=== PATIENT | male | born 1955 | race Caucasian/White ===

== ENCOUNTER 2020-08-24 13:42 | Outpatient (REF) | payer OTHER, SELFPAY ==
[2020-08-24 14:10] LABS: COVID-19 Test Negative (Negative)
== END 2020-08-24 13:43 | disposition home or self-care (01) ==
LOC: HO.LAB 13:42
PROVIDERS: Visit Provider Internal Medicine
DX: Z20.828 Contact with and (suspected) exposure to other viral communicable diseases (principal)
CPT/HCPCS: 87635

== ENCOUNTER 2020-08-25 09:45 | Emergency (ER) | payer SELFPAY ==
[2020-08-25 11:50] VITALS: BP 158/92; PULSE 81; RESP 18; TEMP 36.9; O2SAT 99; BMI 66.1
--- NOTE | 2020-08-25 12:05 | CT_ITS ---
EXAMINATION: CT HEAD WITHOUT CONTRAST CLINICAL INFORMATION: Dizziness COMPARISON: None. TECHNIQUE: Contiguous axial imaging was performed from the skull base to vertex without intravenous contrast. This CT examination was performed using dose optimization techniques as appropriate, variously including the following: * Automated exposure control * Adjustment of mA and/or kV according to patient size (this includes techniques or standardized protocols for targeted exams where dose is matched to indication/reason for exam; i.e. extremities or head) Use of iterative reconstruction technique DLP: 713 mGy-cm. FINDINGS: There is no evidence of acute intracranial hemorrhage or territorial infarction. No abnormal mass effect or midline shift is seen. Suarez to white matter differentiation is well preserved. No extra-axial fluid collections are identified. No hydrocephalus. No significant volume loss. There is no abnormal attenuation within the brain parenchyma. The osseous structures and soft tissues are normal. The mastoid air cells and visualized portions of the paranasal sinuses are well aerated. IMPRESSION: No acute intracranial pathology.
[2020-08-25 12:45] LABS: Hematocrit 48.4 % (42-52); Hemoglobin 16.7 g/dl (14.0-18.0); Mean Corpuscular HGB Conc 34.5 g/dl (31.0-36.0); Mean Corpuscular Hemoglobin 29.9 pg (27.0-33.0); Mean Corpuscular Volume 86.7 fL (80-98); Mean Platelet Volume 9.8 fL (9.4-12.4); Platelet Count 170 X10*3/uL (160-400); Red Blood Count 5.58 X10*6/uL (4.60-5.80); Red Cell Distribution Width 12.2 % (11.0-16.0); White Blood Count 5.8 X10*3/uL (4.8-10.8)
[2020-08-25 13:07] VITALS: BP 133/91; PULSE 80; RESP 18; TEMP 36.9; O2SAT 98
[2020-08-25 13:18] LABS: Anion Gap 14 (12-20); Blood Urea Nitrogen 12 mg/dL (9-16); Calcium 9.3 mg/dL (8.4-10.2); Carbon Dioxide 25 mmol/L (22-29); Chloride 105 mmol/L (96-108); Creatinine Clr Calc Pharmacy 120.8; Estimated Glomerular Filt Rate > 60; Glucose Random 99 mg/dL (60-115); Potassium 3.7 mmol/l (3.3-5.1); Sodium 140 mmol/L (135-145)
--- NOTE | 2020-08-25 14:49 | ED.GENADULT ---
HPI - General Adult General Chief complaint: General Medical Stated complaint: HEADACHE, DIZZINESS Time Seen by Provider: 08/25/20 12:01 Source: patient Mode of arrival: ambulatory History of Present Illness HPI narrative: 65 years old male presented with 2 weeks of dizziness and headache, with episodes of nose bleed also. Today patient has no headache or dizziness but patient is concerned because his father from a stroke at his age. Onset (ago): week(s) (2) Severity: moderate Related Data Allergies Allergy/AdvReac Type Severity Reaction Status Date / Time No Known Allergies Allergy Verified 08/25/20 12:03 Review of Systems Review of Systems: Yes all other systems are reviewed and are negative Constitutional: Constitutional: Reports headache(s) Eyes: Eyes: Reports no additional eye complaints ENT: Reports system reviewed and no additional complaints, except as documented, Reports dizziness and Reports headache(s) Cardiovascular: Cardiovascular: Reports no additional cardiovascular complaints Respiratory: Respiratory: Reports no additional respiratory complaints Gastrointestinal: Gastrointestinal: Reports no additional gastrointestinal complaints Musculoskeletal: Musculoskeletal: Reports no additional musculoskeletal complaints Neurologic: Reports Abnormal speech present, Reports dizziness and Reports headache(s) Psychiatric: Psychiatric: Reports no additional psychiatric complaints [facility] Past Medical History Medical History No known health problems Social History Social History Smoked in Last 30 Days: No Use of substances other than those prescribed or required for medical reasons: No Advance Directives: No Advance Directives Information Provided: No Physical Exam Vital Signs: Vital Signs: Vital Signs Temp Pulse Resp BP Pulse Ox 08/25/20 13:07 98.5 F 80 18 133/91 H 98 08/25/20 11:50 98.4 F 81 18 158/92 H 99 Body Mass Index 66.1 Const: General: cooperative and healthy appearing Orientation/consciousness: oriented to person HENMT: Head: Yes normal to inspection Ears: hearing grossly normal bilaterally General nose exam: Normal external nose present Face and sinus: Yes normal facial exam Eyes: General: appearance normal, both eyes and all related structures Neck: Neck: Yes normal visual inspection Chest: Chest palpation & inspection: normal inspection of the chest Resp: Effort & Inspection: normal respiratory effort GI: Inspection: Yes normal to inspection : General: Yes no CVA tenderness Back/Spine/Pelvis: Back: no CVA tenderness Neuro: General: oriented to person Cranial nerves: Yes CN's II-XII intact bilaterally Cognition (Neuro): normal cognition Speech: Abnormal speech present Gait exam (Neuro): Normal gait present Motor exam (neuro): 5/5 motor strength present throughout and Pronator motor function not present Sensory Exam: Normal double simultaneous stimulation for sensation Coordination: other (NIH score is 0) Extrem: General: Yes normal to inspection and Yes full ROM Course Course Course Narrative: 2 months of intermittent headache and dizziness, fluctuating blood pressure reading in the emergency department with no known history of hypertension. Consider CT head/labs /complete neuro exam. Reevaluation(s) Reevaluation #1: Patient remained asymptomatic no other new symptoms. Time: 15:21 Medical Decision Making MDM Narrative Medical decision making narrative: Assessment and plan. 65 years old male came in with intermittent headache for the past 2 months. Patient had a negative neuro exam, negative CT scan Of the head, and unremarkable labs. Patient was instructed to follow-up with PCP for further evaluation of blood pressure, reassurance. Lab Data Result diagrams: 08/25/20 01:37 08/25/20 12:33 Labs: Lab Results 08/25/20 08/25/20 08/25/20 Range/Units 01:37 12:33 12:33 WBC 5.8 (4.8-10.8) X10*3/uL RBC 5.58 (4.60-5.80) X10*6/uL Hgb 16.7 (14.0-18.0) g/dl Hct 48.4 (42-52) % MCV 86.7 (80-98) fL MCH 29.9 (27.0-33.0) pg MCHC 34.5 (31.0-36.0) g/dl RDW 12.2 (11.0-16.0) % Plt Count 170 (160-400) X10*3/uL MPV 9.8 (9.4-12.4) fL Absolute Nucleated RBC 0.000 (0.0-0.012) X10*3/uL Nucleated RBC % (auto) 0.0 (0.0-0.2) /100WBC Sodium 140 (135-145) mmol/L Potassium 3.7 (3.3-5.1) mmol/l Chloride 105 (96-108) mmol/L Carbon Dioxide 25 (22-29) mmol/L Anion Gap 14 (12-20) BUN 12 (9-16) mg/dL Creatinine 1.08 (0.5-1.4) mg/dL Estim Creat Clear Calc 120.8 Estimated GFR > 60 Random Glucose 99 (60-115) mg/dL Calcium 9.3 (8.4-10.2) mg/dL Coronavirus (PCR) NEGATIVE (Negative) Discharge Plan Discharge Clinical Impression: Headache, Dizziness, Hypertension Patient Disposition: Home, Self-Care Instructions: Hypertension (ED), Dizziness (ED)
[2020-08-25 15:14] LABS: SARS COV2 PCR INHOUSE NEGATIVE (Negative)
== END 2020-08-25 15:40 | disposition home or self-care (01) ==
PROVIDERS: Emergency Provider Emergency Medicine
DX: R51.9 Headache, unspecified (principal); Z20.828 Contact with and (suspected) exposure to other viral communicable diseases; R42 Dizziness and giddiness; I10 Essential (primary) hypertension
CPT/HCPCS: 36415; 70450; 80048; 85027; 87635; 99284

== ENCOUNTER 2020-11-08 10:17 | Outpatient (REF) | payer OTHER, SELFPAY ==
--- NOTE | 2020-11-08 10:24 | XR_ITS ---
EXAMINATION: XR CHEST CLINICAL INFORMATION: : Positive on 10/13/2020. 2 week follow-up. COMPARISON: No previous chest exam available. TECHNIQUE: 2 views of the chest were obtained. FINDINGS: The lungs are well-inflated without any acute pneumonic process. There is a small nodular density in the right lower lobe overlying sixth anterior rib likely artifact. The heart size and pulmonary vascularity is normal. No gross bony abnormality seen. XR/XR chest 2V IMPRESSION: Unremarkable chest exam.
== END 2020-11-08 10:18 | disposition home or self-care (01) ==
LOC: HO.XRAY 10:17
PROVIDERS: PCP Nurse Practitioner Family; Visit Provider Nurse Practitioner Family
DX: U07.1 COVID-19 (principal); R91.8 Other nonspecific abnormal finding of lung field
CPT/HCPCS: 71046

== ENCOUNTER 2021-05-17 11:31 | Outpatient (REF) | payer MEDICARE, SELFPAY ==
[2021-05-17 13:14] LABS: Hematocrit 47.4 % (42-52); Mean Corpuscular HGB Conc 33.8 g/dl (31.0-36.0); Mean Corpuscular Hemoglobin 29.4 pg (27.0-33.0); Platelet Count 170 X10*3/uL (160-400); Red Blood Count 5.45 X10*6/uL (4.60-5.80); Red Cell Distribution Width 12.9 % (11.0-16.0); White Blood Count 5.5 X10*3/uL (4.8-10.8)
[2021-05-17 13:19] LABS: Prothrombin Time 11.8 SEC (9.9-13.0)
== END 2021-05-17 11:32 | disposition home or self-care (01) ==
LOC: HO.10HDL 11:31
PROVIDERS: Visit Provider Internal Medicine
DX: K21.9 Gastro-esophageal reflux disease without esophagitis (principal)
CPT/HCPCS: 36415; 85027; 85610

== ENCOUNTER 2021-05-31 09:34 | Outpatient (REF) | payer MEDICARE, SELFPAY ==
--- NOTE | ~2021-05-31 | XR_ITS ---
EXAMINATION: XR CHEST CLINICAL INFORMATION: Pulmonary nodule COMPARISON: None TECHNIQUE: Two views of the chest were obtained. FINDINGS: The cardiac and mediastinal contours are normal. There are bilateral symmetric 1 cm nodules at the lung bases. These may represent nipple shadows. The lungs are otherwise clear. There is no pleural effusion or pneumothorax. There are mild degenerative changes of the spine. XR/XR chest 2V IMPRESSION: 1 cm symmetric bibasilar pulmonary nodules probably representing nipple shadows. This could be confirmed with nipple markers. Otherwise unremarkable examination.
== END 2021-05-31 09:35 | disposition home or self-care (01) ==
LOC: HO.XRAY 09:34
PROVIDERS: PCP Nurse Practitioner Family; Visit Provider Nurse Practitioner Family
DX: R91.1 Solitary pulmonary nodule (principal)
CPT/HCPCS: 71046

== ENCOUNTER 2021-06-08 12:27 | Emergency (ER) | payer MEDICARE, SELFPAY ==
--- NOTE | ~2021-06-08 | XR_ITS ---
EXAMINATION: XR CHEST CLINICAL INFORMATION: Left-sided chest pain COMPARISON: May 31, 2021 and November 08, 2020 TECHNIQUE: 2 views of the chest were obtained. FINDINGS: No significant abnormality is noted involving the heart, lungs, mediastinum, bony thorax or soft tissues. Nipple shadows again evident. XR/XR chest 2V IMPRESSION: No acute disease.
[2021-06-08 12:54] VITALS: BP 158/92; PULSE 95; RESP 18; TEMP 36.9; O2SAT 99; BMI 29.5
--- NOTE | 2021-06-08 16:12 | ED.GENADULT ---
HPI - General Adult General Chief complaint: General Medical Stated complaint: Headache nausea dizzy Time Seen by Provider: 06/08/21 15:45 Source: patient Limitations: no limitations History of Present Illness HPI narrative: 66-year-old male who presents emergency department for evaluation of left-sided chest pain, abdominal pain, nausea, vomiting and headache. The patient is being treated for chronic babesiosis by Dr. Ivan Noriega (?sp). The patient states that he may have had a rash in July of 2020. He states he then had a COVID-19 infection in October of 2020. 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 He states that his treatment is been a 1 week course Zithromax and Mepron with 1 week off his medication since February of 2021. He states that he has some recent blood work 1 month prior and Bactrim was added to his regimen. Patient also takes multiple other supplement for chronic babesiosis. He states he has not been feeling well for 4 days. He states he has had constant nausea 4 days with 1 episode of emesis last night. He states these had intermittent headaches which are located in the back of his head and occasionally in the temporal areas of his head. He states that he has been having these headaches since August 2020 and had a negative CT scan at that time. States he did have a low-grade fever yesterday of 100? F orally. He has also noted occasional left lateral chest wall tenderness which lasts seconds to minutes and is worse if he presses on his left chest. He denied chills, myalgias, arthralgias, rash, cough, frequency or urgency or dysuria. He states that he did have 1 episode of diarrhea yesterday and now he has soft stool. He has not noticed any blood in the stool or dark tarry stools. Patient did have a COVID-19 infection October 2020 and he received the Pfizer COVID 19 2 doses vaccination. Related Data Allergies Allergy/AdvReac Type Severity Reaction Status Date / Time No Known Allergies Allergy Verified 08/25/20 12:03 Review of Systems Review of Systems: Yes all other systems are reviewed and are negative [facility] Past Medical History [facility] Narrative: Past medical history: Chronic babesiosis. Surgical history: None. Social history: He denies tobacco, alcohol and drug use. Medical History No known health problems Social History Social History Alcohol intake: never Smoked in Last 30 Days: No Use of substances other than those prescribed or required for medical reasons: No Advance Directives: No Advance Directives Information Provided: No Physical Exam Vital Signs: Vital Signs: Last Vital Signs Temp 98.4 F 06/08/21 12:54 Pulse 95 06/08/21 12:54 Resp 18 06/08/21 16:31 BP 150/83 H 06/08/21 16:31 Pulse Ox 99 06/08/21 16:31 Body Mass Index 29.5 Const: General: cooperative and healthy appearing Orientation/consciousness: oriented to person and oriented to place Limitations: no limitations HENMT: Head: Yes normal to inspection, Yes normocephalic and Yes atraumatic Ears: external ears normal General nose exam: Normal external nose present Face and sinus: Yes normal facial exam Mouth: Normal oral and palatal mucosa present Throat: Yes posterior oropharynx normal Eyes: Periorbital: periorbital findings normal Eyelids: Yes eyelids normal Conjunctivae: conjunctivae normal Sclerae: sclerae normal Corneas: corneas normal Pupils: Equal, round and reactive pupils present Direct Ophthalmoscopy: normal light reflex Neck: Neck: Yes full ROM, Yes no lymphadenopathy, Yes no meningeal signs, Yes trachea midline and Yes supple Chest: Chest palpation & inspection: normal inspection of the chest and normal palpation of entire chest wall Resp: Effort & Inspection: normal respiratory effort and able to speak in complete sentences Auscultation: clear to auscultation bilaterally Cardio: Rate: regular rate Rhythm: regular rhythm Heart sounds: S1 normal heart sound present, S2 normal heart sound present and no murmurs GI: Inspection: Yes normal to inspection Palpation (GI): Soft to palpation, nontender, no guarding, not rigid and No hepatosplenomegaly present : General: Yes no CVA tenderness Back/Spine/Pelvis: Back: no CVA tenderness Cervical Spine: normal cervical lordosis Thoracic/Lumbar Spine: thoracic and lumbar spine normal to inspection Skin: Lesions: no lesions Rashes: no rashes Wounds: no wounds Neuro: General: oriented to person, oriented to place and no meningeal signs Cranial nerves: Yes CN's II-XII intact bilaterally and Yes Equal, round and reactive pupils present Cognition (Neuro): normal cognition Motor exam (neuro): 5/5 motor strength present throughout Extrem: General: Yes normal to inspection and Yes full ROM Psych: Appearance: well kempt Mental Status: mental status grossly normal Speech and movement: Normal speech and movement present Affect: normal affect Attitude: cooperative Thought process: Normal thought process present Thought content: Normal thought content present Course Course Course Narrative: 66-year-old male who presents emergency department for evaluation of 4 days of not feeling well with symptoms including persistent nausea x4 days, emesis x1 last night, 1 episode of diarrhea now with soft stools, headaches which he has had in the past and a temperature of 100? F headaches and intermittent left-sided chest pain. The patient is 3 antibiotics, azithromycin, Bactrim and Mepron(Atovaquone) for chronic babesiosis as well as multiple supplemental medications. Revealed an elevated blood pressure of 158/92 otherwise was unremarkable. Physical examination was normal. I did order a COVID-19, CBC, CMP, CRP, ESR, troponin, chest x-ray, EKG on this patient . His nausea will be treated with Zofran 4 mg IV. Was also ordered to get normal saline x1 L. 1816: The patient's laboratory evaluation revealed a normal CBC, ESR, CRP. The patient's CMP did reveal elevated AST, ALT and bilirubin 56, 215 and 1.6. It is unclear to me what is causing this elevation, the patient will need to pursue this with his linking machine operator, Dr. Aceves. At this time I do not think patient has acute Lyme or adhesiolysis is the cause of his symptoms. He may have an acute viral syndrome or he may be having side effects from his medications as the cause of his presentation. Patient was prescribed Zofran ODT 4 mg every 6-8 hours as needed for nausea and vomiting. The patient was given verbal and printed instructions prior to discharge. The patient was advised to follow-up with his PCP in 2 days and to return to the emergency department if his symptoms get worse or if he develop any new symptoms that are concerning to him. Medical Decision Making Lab Data Result diagrams: 06/08/21 16:28 06/08/21 16:27 Labs: Lab Results 06/08/21 06/08/21 06/08/21 Range/Units 16:25 16:27 16:27 WBC (4.8-10.8) X10*3/uL RBC (4.60-5.80) X10*6/uL Hgb (14.0-18.0) g/dl Hct (42-52) % MCV (80-98) fL MCH (27.0-33.0) pg MCHC (31.0-36.0) g/dl RDW (11.0-16.0) % Plt Count (160-400) X10*3/uL MPV (9.4-12.4) fL Immature Gran % (Auto) (0.0-0.4) % Neut % (Auto) (45-73) % Lymph % (Auto) (20-40) % [place] % (Auto) (2-11) % Eos % (Auto) (0-4) % Baso % (Auto) (0-2) % Lymph # (Auto) (1.2-4.9) X10*3/uL [place] # (Auto) (0.1-1.2) X10*3/uL Eos # (Auto) (0.0-0.4) X10*3/uL Baso # (Auto) (0.0-0.2) X10*3/uL Abs Immat Gran (auto) (0.00-0.03) X10*3/uL Absolute Neuts (auto) (2.0-8.3) X10*3/uL Absolute Nucleated RBC (0.0-0.012) X10*3/uL Nucleated RBC % (auto) (0.0-0.2) /100WBC ESR (0-15) MM/HR Sodium 141 (135-145) mmol/L Potassium 3.5 (3.3-5.1) mmol/L Chloride 103 (96-108) mmol/L Carbon Dioxide 24 (22-29) mmol/L Anion Gap 18 (12-20) BUN 7 L (9-16) mg/dL Creatinine 1.18 (0.5-1.4) mg/dL Estim Creat Clear Calc 69.4 Estimated GFR > 60 Random Glucose 112 (60-115) mg/dL Calcium 10.0 D (8.4-10.2) mg/dL Total Bilirubin 1.6 H (0.0-1.0) mg/dL AST 56 H (5-37) U/L ALT 215 H (0-40) U/L Alkaline Phosphatase 107 (39-117) U/L Total Creatine Kinase 104 (38-174) U/L Troponin I High Sens < 3.5 (<3.5-35.0) ng/L C-Reactive Protein 0.05 (< or = 0.50) mg/dL Total Protein 7.9 (6.5-8.0) g/dL Albumin 5.2 H (3.5-5.0) g/dL Lipase 25 (8-78) U/L COVID-19 (GERRI) Negative (Negative) COVID-19 Clin Com See Note 06/08/21 06/08/21 Range/Units 16:28 16:28 WBC 6.2 (4.8-10.8) X10*3/uL RBC 5.79 (4.60-5.80) X10*6/uL Hgb 17.1 (14.0-18.0) g/dl Hct 50.1 (42-52) % MCV 86.5 (80-98) fL MCH 29.5 (27.0-33.0) pg MCHC 34.1 (31.0-36.0) g/dl RDW 13.1 (11.0-16.0) % Plt Count 173 (160-400) X10*3/uL MPV 8.9 L (9.4-12.4) fL Immature Gran % (Auto) 0.2 (0.0-0.4) % Neut % (Auto) 72.4 (45-73) % Lymph % (Auto) 20.2 (20-40) % [place] % (Auto) 6.4 (2-11) % Eos % (Auto) 0.2 (0-4) % Baso % (Auto) 0.6 (0-2) % Lymph # (Auto) 1.3 (1.2-4.9) X10*3/uL [place] # (Auto) 0.4 (0.1-1.2) X10*3/uL Eos # (Auto) 0.0 (0.0-0.4) X10*3/uL Baso # (Auto) 0.0 (0.0-0.2) X10*3/uL Abs Immat Gran (auto) 0.01 (0.00-0.03) X10*3/uL Absolute Neuts (auto) 4.5 (2.0-8.3) X10*3/uL Absolute Nucleated RBC 0.000 (0.0-0.012) X10*3/uL Nucleated RBC % (auto) 0.0 (0.0-0.2) /100WBC ESR 1 (0-15) MM/HR Sodium (135-145) mmol/L Potassium (3.3-5.1) mmol/L Chloride (96-108) mmol/L Carbon Dioxide (22-29) mmol/L Anion Gap (12-20) BUN (9-16) mg/dL Creatinine (0.5-1.4) mg/dL Estim Creat Clear Calc Estimated GFR Random Glucose (60-115) mg/dL Calcium (8.4-10.2) mg/dL Total Bilirubin (0.0-1.0) mg/dL AST (5-37) U/L ALT (0-40) U/L Alkaline Phosphatase (39-117) U/L Total Creatine Kinase (38-174) U/L Troponin I High Sens (<3.5-35.0) ng/L C-Reactive Protein (< or = 0.50) mg/dL Total Protein (6.5-8.0) g/dL Albumin (3.5-5.0) g/dL Lipase (8-78) U/L COVID-19 (GERRI) (Negative) COVID-19 Clin Com Discharge Plan Discharge Clinical Impression: Chest pain Qualifiers: Chest pain type: unspecified Qualified Code(s): R07.9 - Chest pain, unspecified Nausea & vomiting Qualifiers: Vomiting type: unspecified Vomiting Intractability: non-intractable Qualified Code(s): R11.2 - Nausea with vomiting, unspecified Patient Disposition: Home, Self-Care Instructions: Acute Nausea and Vomiting (ED) Additional Instructions: Your blood work was normal except for elevation in your liver test. You had an elevated AST of 56, and elevated ALT 215 in an elevated total bilirubin of 1.6. I do not know the cause of these elevations but I do not think that they are related to your symptoms. You should discuss these elevations with your linking machine operator, Dr. Aceves, you should have these tests repeated in 2 weeks and that they are still elevated then you may need further testing. Take Zofran (ondansetron) 4 mg oral dissolvable tablets, dissolve 1 tablet in your mouth every 6-8 hours as needed for nausea and vomiting. Follow-up with your doctor in 2 days. Please return to the emergency department if your symptoms get worse or if you develop any symptoms that are concerning to you.
[2021-06-08 16:31] VITALS: BP 150/83; RESP 18; O2SAT 99
[2021-06-08 16:33] LABS: MANUAL DIFF FLAG NO
[2021-06-08 16:35] LABS: Basophils Percent Auto 0.6 % (0-2); Eosinophils Percent Auto 0.2 % (0-4); Hematocrit 50.1 % (42-52); Hemoglobin 17.1 g/dl (14.0-18.0); Imm Gran Abs Auto 0.01 X10*3/uL (0.00-0.03); Imm Gran Pct Auto 0.2 % (0.0-0.4); Lymphocytes Absolute Auto 1.3 X10*3/uL (1.2-4.9); Lymphocytes Percent Auto 20.2 % (20-40); Mean Corpuscular HGB Conc 34.1 g/dl (31.0-36.0); Mean Corpuscular Hemoglobin 29.5 pg (27.0-33.0); Mean Corpuscular Volume 86.5 fL (80-98); Mean Platelet Volume 8.9 fL (9.4-12.4); Monocytes Absolute Auto 0.4 X10*3/uL (0.1-1.2); Monocytes Percent Auto 6.4 % (2-11); Neutrophils Absolute Auto 4.5 X10*3/uL (2.0-8.3); Neutrophils Percent Auto 72.4 % (45-73); Platelet Count 173 X10*3/uL (160-400); Red Blood Count 5.79 X10*6/uL (4.60-5.80); Red Cell Distribution Width 13.1 % (11.0-16.0); White Blood Count 6.2 X10*3/uL (4.8-10.8)
[2021-06-08 16:47] LABS: COVID-19 Test Negative (Negative)
[2021-06-08] MEDS: 0.9 % Sodium Chloride 1,000 ML 999 ML IV (16:47)
[2021-06-08 17:06] LABS: Alanine Aminotransferase 215 U/L (0-40); Albumin Level 5.2 g/dL (3.5-5.0); Alkaline Phosphatase 107 U/L (39-117); Aspartate Amino Transferase 56 U/L (5-37); Bilirubin Total 1.6 mg/dL (0.0-1.0); Blood Urea Nitrogen 7 mg/dL (9-16); C Reactive Protein 0.05 mg/dL (< or = 0.50); Creatinine Clr Calc Pharmacy 69.4; Estimated Glomerular Filt Rate > 60; Glucose Random 112 mg/dL (60-115); Lipase 25 U/L (8-78); Total Protein 7.9 g/dL (6.5-8.0)
[2021-06-08 17:07] LABS: Troponin-I High Sensitivity < 3.5 ng/L (<3.5-35.0)
[2021-06-08 17:11] LABS: Erythrocyte Sedimentation Rate 1 MM/HR (0-15)
[2021-06-08 17:19] LABS: Anion Gap 18 (12-20); Carbon Dioxide 24 mmol/L (22-29); Chloride 103 mmol/L (96-108); Potassium 3.5 mmol/L (3.3-5.1); Sodium 141 mmol/L (135-145)
== END 2021-06-08 18:28 | disposition home or self-care (01) ==
PROVIDERS: Emergency Provider Emergency Medicine Emergency Medical Services; PCP Nurse Practitioner Family
DX: R07.9 Chest pain, unspecified (principal); R51.9 Headache, unspecified; R42 Dizziness and giddiness; R11.2 Nausea with vomiting, unspecified; Z86.16 Personal history of COVID-19; Z79.899 Other long term (current) drug therapy; Z20.822 Contact with and (suspected) exposure to COVID-19
CPT/HCPCS: 36415; 71046; 80053; 82550; 83690; 84484; 85025; 85652; 86140; 87635; 96365; 96375; 99284; J2405

== ENCOUNTER 2021-06-19 23:46 | Emergency (ER) | payer MEDICARE, SELFPAY ==
[2021-06-19 23:58] VITALS: BP 112/70; PULSE 72; RESP 16; TEMP 36.7; O2SAT 98; BMI 29.2
--- NOTE | 2021-06-20 00:03 | ECG_ITS ---
Test Reason : CP Blood Pressure : / mmHG Vent. Rate : 067 BPM Atrial Rate : 067 BPM P-R Int : 156 ms QRS Dur : 092 ms QT Int : 400 ms P-R-T Axes : 028 -28 005 degrees QTc Int : 422 ms Normal sinus rhythm Normal ECG No previous ECGs available Referred By: Generic ED Physician Electronically Signed By:NIKKY GOMEZ MD
[2021-06-20 00:20] LABS: MANUAL DIFF FLAG NO
[2021-06-20 00:29] LABS: Basophils Percent Auto 0.7 % (0-2); Eosinophils Absolute Auto 0.1 X10*3/uL (0.0-0.4); Eosinophils Percent Auto 1.4 % (0-4); Hematocrit 42.7 % (42-52); Hemoglobin 14.8 g/dl (14.0-18.0); Imm Gran Abs Auto 0.02 X10*3/uL (0.00-0.03); Imm Gran Pct Auto 0.3 % (0.0-0.4); Lymphocytes Absolute Auto 1.8 X10*3/uL (1.2-4.9); Lymphocytes Percent Auto 30.3 % (20-40); Mean Corpuscular HGB Conc 34.7 g/dl (31.0-36.0); Mean Corpuscular Hemoglobin 30.3 pg (27.0-33.0); Mean Corpuscular Volume 87.3 fL (80-98); Mean Platelet Volume 9.6 fL (9.4-12.4); Monocytes Absolute Auto 0.4 X10*3/uL (0.1-1.2); Monocytes Percent Auto 6.3 % (2-11); Neutrophils Absolute Auto 3.6 X10*3/uL (2.0-8.3); Platelet Count 159 X10*3/uL (160-400); Red Blood Count 4.89 X10*6/uL (4.60-5.80); Red Cell Distribution Width 13.2 % (11.0-16.0); White Blood Count 5.9 X10*3/uL (4.8-10.8)
[2021-06-20 00:42] LABS: Troponin-I High Sensitivity < 3.5 ng/L (<3.5-35.0)
[2021-06-20 00:43] LABS: Anion Gap 13 (12-20); Blood Urea Nitrogen 9 mg/dL (9-16); Calcium 9.2 mg/dL (8.4-10.2); Carbon Dioxide 24 mmol/L (22-29); Chloride 105 mmol/L (96-108); Creatinine Clr Calc Pharmacy 81.6; Estimated Glomerular Filt Rate > 60; Glucose Random 99 mg/dL (60-115); Potassium 3.8 mmol/L (3.3-5.1); Sodium 138 mmol/L (135-145)
[2021-06-20 03:36] VITALS: BP 138/79; PULSE 82; RESP 16; O2SAT 100
--- NOTE | 2021-06-20 03:37 | PC.NURSE ---
PT TO ROOM, CHG INTO GOWN AND AWAITING MD'S EVAL.
--- NOTE | 2021-06-20 03:58 | ED.CHESTPAIN ---
HPI - Chest Pain General Chief Complaint: Chest Pain Stated Complaint: low blood pressure, chest & back pain Time Seen by Provider: 06/20/21 03:58 Source: patient Mode of arrival: ambulatory Limitations: no limitations History of Present Illness HPI narrative: Patient's history of babesiosis since 07/31 on intermediate region of Zithromax, Bactrim, atovaquone was seen here on 06/08 for chest pain which is intermittent sharp pain is going on for a while today also had similar chest pain checked his blood pressure was in 80s systolic no dizziness no shortness of breath no diaphoresis no nausea no vomiting no diarrhea patient seems to be very anxious when arrived. During last visit patient LFT was slightly elevated and patient was doctors stop taking his medications. Related Data Home Medications Medication Instructions Recorded Confirmed atovaquone 750 mg/5 mL oral 5 ml PO BID 06/13/21 06/13/21 suspension azithromycin 250 mg tablet 250 mg PO DAILY 06/13/21 06/13/21 famotidine 10 mg tablet (Acid 1 tab PO DAILY PRN 06/13/21 06/13/21 Controller) hydroxyzine HCl 10 mg tablet 1.5 tab PO BEDTIME PRN 06/13/21 06/13/21 omeprazole 20 mg capsule,delayed 1 cap PO DAILY 06/13/21 06/13/21 release sulfamethoxazole 800 1 tab PO BID 06/13/21 06/13/21 mg-trimethoprim 160 mg tablet Allergies Allergy/AdvReac Type Severity Reaction Status Date / Time No Known Allergies Allergy Verified 08/25/20 12:03 Review of Systems Review of Systems: Yes all other systems are reviewed and are negative PMFSH Past Medical History Medical History COVID-19 vaccine series completed GERD (gastroesophageal reflux disease) H/O babesiosis History of COVID-19 Hx of flexible sigmoidoscopy Social History Social History Are you a primary medicare specialist to a significant other at home: No Do you presently have visiting nurse or other home services: No Alcohol intake: never Patient Tobacco Use Status: Never used Tobacco Advance Directives: No Advance Directives Information Provided: No Physical Exam Vital Signs: Vital Signs: Last Vital Signs Temp 98.0 F 06/19/21 23:58 Pulse 76 06/20/21 04:38 Resp 16 06/20/21 03:36 BP 123/76 06/20/21 04:38 Pulse Ox 100 06/20/21 03:36 Body Mass Index 29.2 Appearance: Alert. Oriented X3. No acute distress. Anxious Eyes: No pallor or icterus ENT: Pharynx normal. Oral Mucosa moist Neck: Normal inspection. Neck supple. CVS: Normal heart rate and rhythm. Pulses normal. Respiratory: No respiratory distress. Equal air entry bilateral, no wheezing/rales/rhonchi Abdomen: Soft and nontender. Bowel sounds are present, no mass palpable, no CVA tenderness Skin: Skin warm and dry. Normal skin color. Normal skin turgor. Extremities: No lower extremity edema. No calf tenderness Neuro: Oriented X 3. No motor deficit. No sensory deficit.No cerebellar signs , cranial nerves II-XII intact MDM - Chest Pain MDM Narrative Medical decision making narrative: Patient atypical chest pain been to hospital multiple times pain similar to that in the past with workup negative pain is very sharp on anterior left chest area no pain on arrival, troponin negative for any acute ischemia will discharge patient home advised to follow with PCP Lab Data Attestation: I reviewed the patient's lab results. Result diagrams: 06/20/21 00:11 06/20/21 00:11 Labs: Lab Results 06/20/21 06/20/21 06/20/21 Range/Units 00:11 00:11 00:11 WBC 5.9 (4.8-10.8) X10*3/uL RBC 4.89 (4.60-5.80) X10*6/uL Hgb 14.8 (14.0-18.0) g/dl Hct 42.7 (42-52) % MCV 87.3 (80-98) fL MCH 30.3 (27.0-33.0) pg MCHC 34.7 (31.0-36.0) g/dl RDW 13.2 (11.0-16.0) % Plt Count 159 L (160-400) X10*3/uL MPV 9.6 (9.4-12.4) fL Immature Gran % (Auto) 0.3 (0.0-0.4) % Neut % (Auto) 61.0 (45-73) % Lymph % (Auto) 30.3 (20-40) % [place] % (Auto) 6.3 (2-11) % Eos % (Auto) 1.4 (0-4) % Baso % (Auto) 0.7 (0-2) % Lymph # (Auto) 1.8 (1.2-4.9) X10*3/uL [place] # (Auto) 0.4 (0.1-1.2) X10*3/uL Eos # (Auto) 0.1 (0.0-0.4) X10*3/uL Baso # (Auto) 0.0 (0.0-0.2) X10*3/uL Abs Immat Gran (auto) 0.02 (0.00-0.03) X10*3/uL Absolute Neuts (auto) 3.6 (2.0-8.3) X10*3/uL Absolute Nucleated RBC 0.000 (0.0-0.012) X10*3/uL Nucleated RBC % (auto) 0.0 (0.0-0.2) /100WBC Sodium 138 (135-145) mmol/L Potassium 3.8 (3.3-5.1) mmol/L Chloride 105 (96-108) mmol/L Carbon Dioxide 24 (22-29) mmol/L Anion Gap 13 (12-20) BUN 9 (9-16) mg/dL Creatinine 1.00 (0.5-1.4) mg/dL Estim Creat Clear Calc 81.6 Estimated GFR > 60 Random Glucose 99 (60-115) mg/dL Calcium 9.2 D (8.4-10.2) mg/dL Total Bilirubin 0.6 (0.0-1.0) mg/dL Direct Bilirubin 0.3 (0.0-0.5) mg/dL AST 38 H (5-37) U/L ALT 121 H (0-40) U/L Alkaline Phosphatase 83 D (39-117) U/L Troponin I High Sens < 3.5 (<3.5-35.0) ng/L Total Protein 6.4 L (6.5-8.0) g/dL Albumin 4.3 (3.5-5.0) g/dL ECG Data ECG #1: Attestation: I personally reviewed and interpreted this ECG as follows: Interpretation: Normal sinus rhythm with heart rate 67 beats per minute normal intervals normal axis no acute ischemic changes Discharge Plan Discharge Clinical Impression: Atypical chest pain Patient Disposition: Home, Self-Care Instructions: Musculoskeletal Pain (ED) Additional Instructions: Your chest pain is likely musculoskeletal take ibuprofen for pain as needed Prescriptions: No Action famotidine [Acid Controller] 10 mg tablet 1 tab PO DAILY PRN (Reason: acid reflux) RF: 0 azithromycin 250 mg tablet 250 mg PO DAILY RF: 0 sulfamethoxazole-trimethoprim 800-160 mg tablet 1 tab PO BID RF: 0 omeprazole 20 mg capsule,delayed release(DR/EC) 1 cap PO DAILY RF: 0 hydroxyzine HCl 10 mg tablet 1.5 tab PO BEDTIME PRN (Reason: Anxiety) RF: 0 atovaquone 750 mg/5 mL suspension 5 ml PO BID RF: 0 Interventions: ED Discharge Assessment Last Done: 06/20/21 04:52 Discharge Date/Time: 06/20/21 04:53
[2021-06-20 04:21] LABS: Alanine Aminotransferase 121 U/L (0-40); Albumin Level 4.3 g/dL (3.5-5.0); Alkaline Phosphatase 83 U/L (39-117); Aspartate Amino Transferase 38 U/L (5-37); Bilirubin Direct 0.3 mg/dL (0.0-0.5); Bilirubin Total 0.6 mg/dL (0.0-1.0); Total Protein 6.4 g/dL (6.5-8.0)
[2021-06-20 04:36] VITALS: BP 130/77; PULSE 71
[2021-06-20 04:37] VITALS: BP 138/83; PULSE 74
[2021-06-20 04:38] VITALS: BP 123/76; PULSE 76
== END 2021-06-20 04:53 | disposition home or self-care (01) ==
PROVIDERS: Emergency Provider Internal Medicine
DX: R07.89 Other chest pain (principal); B60.00 Babesiosis, unspecified
CPT/HCPCS: 36415; 80048; 80076; 84484; 85025; 93005; 99283

== ENCOUNTER 2021-06-20 09:18 | Day surgery (SDC) | payer MEDICARE, SELFPAY ==
[2021-06-13 14:45] VITALS: BMI 28.8
--- NOTE | 2021-06-19 08:22 | HO.ANESPROP2 ---
Documented by User: Izabella Oliva 06/19/21 08:23 HPI - Anesthesia Eval Consult details Narrative: 66yo M for Upper Endoscopy 06/08/[facility] [place] N/V, left chest wall tenderness to palpation PMFSH Past Medical History Medical History COVID-19 vaccine series completed GERD (gastroesophageal reflux disease) H/O babesiosis History of COVID-19 Hx of flexible sigmoidoscopy Social History Social History Are you a primary childbirth and infant care teacher to a significant other at home: No Do you presently have visiting nurse or other home services: No Alcohol intake: never Patient Tobacco Use Status: Never used Tobacco Use of substances other than those prescribed or required for medical reasons: No Have you been hit, kicked, punched, or otherwise hurt by someone within the past year? If so, by whom?: No Are you DNR?: No Advance Directives: No Advance Directives Information Provided: Yes (has HCP-will bring copy DOS) Advance Directives on File: No Recently lost weight without trying: No Eating poorly because of decreased appetite: No Nutrition Risks: No Nutritional Risk Poor oral hygiene: No Meds Allergies Allergy/AdvReac Type Severity Reaction Status Date / Time No Known Allergies Allergy Verified 06/20/21 09:32 Home Medications Medication Instructions Recorded Confirmed Last Taken Type atovaquone 750 mg/5 mL oral 5 ml PO BID 06/13/21 06/13/21 Unknown History suspension famotidine 10 mg tablet (Acid 1 tab PO DAILY PRN 06/13/21 06/13/21 Unknown History Controller) hydroxyzine HCl 10 mg tablet 1.5 tab PO BEDTIME PRN 06/13/21 06/13/21 Unknown History omeprazole 20 mg capsule,delayed 1 cap PO DAILY 06/13/21 06/13/21 Unknown History release sulfamethoxazole 800 1 tab PO BID 06/13/21 06/13/21 Unknown History mg-trimethoprim 160 mg tablet Exam Exam Date and Time: June 19, 2021 0822 Height,Weight and Vital Signs: Height 5 ft 9 in Weight 88.451 kg Pertinent Lab Results Pertinent Lab Results: Laboratory Tests 06/08/21 06/08/21 16:27 16:28 WBC 6.2 Hgb 17.1 Hct 50.1 Plt Count 173 Sodium 141 Potassium 3.5 Chloride 103 Carbon Dioxide 24 BUN 7 L Creatinine 1.18 Assessment and Plan Assessment Anesthesia Assessment: Chart Reviewed Documented by User: Edmar Bragg 06/20/21 09:45 PMFSH Past Medical History Medical History COVID-19 vaccine series completed GERD (gastroesophageal reflux disease) H/O babesiosis History of COVID-19 Hx of flexible sigmoidoscopy Social History Social History Are you a primary childbirth and infant care teacher to a significant other at home: No Do you presently have visiting nurse or other home services: No Alcohol intake: never Patient Tobacco Use Status: Never used Tobacco Use of substances other than those prescribed or required for medical reasons: No Have you been hit, kicked, punched, or otherwise hurt by someone within the past year? If so, by whom?: No Are you DNR?: No Advance Directives: No Advance Directives Information Provided: Yes (has HCP-will bring copy DOS) Advance Directives on File: No Recently lost weight without trying: No Eating poorly because of decreased appetite: No Nutrition Risks: No Nutritional Risk Poor oral hygiene: No Meds Allergies Allergy/AdvReac Type Severity Reaction Status Date / Time No Known Allergies Allergy Verified 06/20/21 09:32 Home Medications Medication Instructions Recorded Confirmed Last Taken Type atovaquone 750 mg/5 mL oral 5 ml PO BID 06/13/21 06/13/21 Unknown History suspension famotidine 10 mg tablet (Acid 1 tab PO DAILY PRN 06/13/21 06/13/21 Unknown History Controller) hydroxyzine HCl 10 mg tablet 1.5 tab PO BEDTIME PRN 06/13/21 06/13/21 Unknown History omeprazole 20 mg capsule,delayed 1 cap PO DAILY 06/13/21 06/13/21 Unknown History release sulfamethoxazole 800 1 tab PO BID 06/13/21 06/13/21 Unknown History mg-trimethoprim 160 mg tablet Exam Airway Mallampati Class: II TM Dist: >3cm Neck ROM: Full
[2021-06-20 09:36] VITALS: BP 144/88; PULSE 85; RESP 16; TEMP 36.9; O2SAT 99
[2021-06-20] MEDS: Lactated Ringers 1,000 ML 100 ML IVCONT (09:55)
--- NOTE | 2021-06-20 10:03 | MHC.SHP ---
Pre-Procedural Eval Section A Date of Service: 06/20/21 Section B Chief Complaint: reflux Details of Present Illness: see H&P no changes Relevant Social History: None Present Medications: see Short Stay Collaborative assessment Medical History: No relevant PMH History of Previous Operations: No relevant previous surgery Allergies: Allergies Allergy/AdvReac Type Severity Reaction Status Date / Time No Known Allergies Allergy Verified 06/20/21 09:32 Review of Systems Sugical H&P ROS: Negative: Constitution, Cardiovascular, Respiratory, Neurological, Psychiatric, Hem-Onc, Allergic/Immunologic, Gastrointestinal, Genitourinary, Musculoskeletal, Integumentary, Endocrine and Eyes/Ears/Nose/Throat Exam Surgical H&P Exam: Normal: HEENT, Normal: Heart, Normal: Lungs, Normal: Extremities, Normal: Abdomen, Normal: Skin and Normal: Neurological Plan Diagnosis/Plan: Unchanged I have reviewed the history and physical and performed a pertinent physical examination on my patient. No changes have occurred unless specified.
--- NOTE | 2021-06-20 10:15 | PM.OP ---
Brief Operative Note Date of Service: 06/20/21 Pre-op diagnosis: gerd Post-op diagnosis: same Procedure: egd Surgeon: Gavin Aceves Anesthesia: MAC Was an Paper Bag Making Machinist used for this Procedure?: No Estimated blood loss (mL): 2 Pathology: other (bxs antrum, egj, duodenum) Condition: stable Disposition: PACU
[2021-06-20 10:19] VITALS: BP 119/74; PULSE 74; RESP 14; TEMP 37.1; O2SAT 96
--- NOTE | 2021-06-20 10:29 | OP_ITS ---
SURGEON: Gavin Aceves MD INDICATIONS: Gastroesophageal reflux disease. PREOPERATIVE DIAGNOSIS: POSTOPERATIVE DIAGNOSIS: PROCEDURE PERFORMED: Upper endoscopy with biopsy. ESTIMATED BLOOD LOSS: COMPLICATIONS: ANESTHESIA: ASSISTANTS: SPECIMENS: MEDICATIONS: Monitored anesthesia care. DESCRIPTION OF PROCEDURE: History and physical performed. The risks and benefits of the procedure were explained to the patient. Informed consent was obtained. The patient was placed in the left lateral decubitus position. The Olympus video gastroscope was introduced into the esophagus, stomach, and duodenum. Examination was performed and the scope was removed. He tolerated the procedure well and was returned to recovery area in stable condition. FINDINGS: ESOPHAGUS: The esophagus was normal. There was no esophagitis. Biopsies were obtained from the EG junction. STOMACH: The stomach was normal. Antral biopsies were obtained. DUODENUM: The duodenum was normal. Biopsies were obtained from the second portion. IMPRESSION: Gastroesophageal reflux disease, normal upper endoscopy. RECOMMENDATION: Follow up the biopsy results. MD JAILENE Kauffman/MODL / [id number]
[2021-06-20 10:34] VITALS: BP 128/82; PULSE 70; RESP 16; TEMP 37.1; O2SAT 96
== END 2021-06-20 10:50 | disposition home or self-care (01) ==
PROVIDERS: PCP Nurse Practitioner Family; Visit Provider Internal Medicine Gastroenterology
PROC: 0DJ08ZZ Inspection of Upper Intestinal Tract, Via Natural or Artificial Opening Endoscopic (ICD-10-PCS; CPT 43235; principal; 2021-06-20 10:50)
DX: K21.9 Gastro-esophageal reflux disease without esophagitis (principal); K29.50 Unspecified chronic gastritis without bleeding; E78.5 Hyperlipidemia, unspecified; F41.9 Anxiety disorder, unspecified; Z79.899 Other long term (current) drug therapy; Z86.16 Personal history of COVID-19; Z86.19 Personal history of other infectious and parasitic diseases
CPT/HCPCS: 43239; 88305; 88342

== ENCOUNTER 2021-09-01 14:37 | Outpatient (REF) | payer MEDICARE, SELFPAY ==
--- NOTE | ~2021-09-01 | XR_ITS ---
EXAMINATION: XR KNEE, LEFT CLINICAL INFORMATION: Left knee pain COMPARISON: None TECHNIQUE: Four views of the left knee. FINDINGS: Small knee effusion. The alignment is normal. No joint space narrowing. Mild degenerative change with small osteophytes seen. No acute osseous findings. XR/XR knee LT 4V IMPRESSION: Small knee effusion. Mild degenerative change. No acute osseous abnormality.
== END 2021-09-01 14:38 | disposition home or self-care (01) ==
LOC: HO.XRAY 14:37
PROVIDERS: Absent Provider Nurse Practitioner; PCP Nurse Practitioner; Visit Provider Internal Medicine
DX: M25.562 Pain in left knee (principal)
CPT/HCPCS: 73564

== ENCOUNTER 2024-04-09 14:07 | Outpatient (AMB) | payer BC, SELFPAY ==
--- NOTE | 2024-04-09 14:24 | A.OFFVIS_ITS ---
Vital Signs 04/09/24 14:29 Height 5 ft 9 in Weight 222 lb BMI 32.8 BP 140/76 H Blood Pressure Location Lt brachial Position Sitting Pulse 78 Intake Visit Reasons: Hemorrhoids Intake Note: Patient new consult for hemorrhoids. Patient denies any GI issues. 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 Jadon alvarado at - well controlled No N/V/D/ abdominal pain- fever or chills PFSH Medical History Hx of flexible sigmoidoscopy H/O babesiosis COVID-19 vaccine series completed History of COVID-19 GERD (gastroesophageal reflux disease) Social History Are you a primary overnight caregiver to a significant other at home: No Do you presently have visiting nurse or other home services: No Alcohol intake: never Patient Tobacco Use Status: Never used Tobacco Review of Systems Const All systems reviewed & are unremarkable except as noted in HPI and below Card Denies chest pain and Denies dyspnea Resp Denies dyspnea GI Denies abdominal pain, Denies change in bowel habits, Denies heartburn, Denies nausea and Denies vomiting Physical Exam Vital Signs: Last Vital Signs Pulse 78 04/09/24 14:29 BP 140/76 H 04/09/24 14:29 BMI result Body Mass Index 32.8 Const General: cooperative, healthy appearing, comfortable and no acute distress Orientation/consciousness: patient oriented x3 Limitations: no limitations Resp Effort & Inspection: normal respiratory effort and able to speak in complete sentences Auscultation: clear to auscultation bilaterally, no rales, no rhonchi and no wheezes Cardio Rate: regular rate Rhythm: regular rhythm Heart sounds: S1 normal heart sound present and S2 normal heart sound present GI Palpation (GI): Soft to palpation and nontender Auscultation: normal bowel sounds Skin General skin exam: no rashes or lesions noted Neuro General: patient oriented x3 Psych Appearance: grossly normal and well kempt Mental Status: mental status grossly normal Speech and movement: Normal speech and movement present Affect: normal affect Attitude: cooperative Thought process: Normal thought process present Thought content: Normal thought content present Insight: Good insight present (Psych) Judgement: Good judgement present (Psych) Assessment & Plan Assessment & Plan (1) Encounter for screening colonoscopy: Comment: discussed proc/ rare risks- need escort-prep Code(s): Z12.11 - Encounter for screening for malignant neoplasm of colon Category: Medical Plan: index screening (2) Hemorrhoids: Code(s): K64.9 - Unspecified hemorrhoids Category: Medical Plan: HFD avoid strain metamucil Surg consult Plan Colonoscopy MG prep Orders: Orders Colonoscopy - GI Use Only Today Z12.11 - Encounter for screening for malignant neoplasm of colon Referrals General Surgery Referral K64.9 - Unspecified hemorrhoids Medications: New bisacodyl (Dulcolax (bisacodyl)) Day before procedure @ 12 noon Take 4 tablets by mouth followed by large glass of water 20 mg (4 x 5 mg) PO ONCE 1 day PRN 4 tabs 0RF colonoscopy prep Z12.11 - Encounter for screening for malignant neoplasm of colon polyethylene glycol 3350 (Miralax) Take as directed by mouth the day before your procedure. 238 grams PO ONCE 1 day 238 grams 0RF laxative effect hydrocortisone 2.5% (Proctosol HC) 1 appl SC BEDTIME PRN 30 grams 3RF hemorrhoids psyllium husk (Metamucil) mix into at least 8 oz of water or juice before administering 1 tbsp PO DAILY 30 days 660 grams 5RF Patient Instructions: Colonoscopy MG prep, reviewed- lit given call w/ concerns Coding Level of Care Code New Pt Level 3 (39293) Diagnoses Encounter for screening colonoscopy Z12.11 Hemorrhoids K64.9 Time Spent (min) 30
[2024-04-09 14:29] VITALS: BP 140/76; PULSE 78; BMI 32.8
== END 2024-04-09 15:15 | disposition home or self-care (01) ==
PROVIDERS: PCP Nurse Practitioner; Visit Provider Physician Assistant
DX: K64.9 Unspecified hemorrhoids (principal); Z12.11 Encounter for screening for malignant neoplasm of colon
CPT/HCPCS: 99203

== ENCOUNTER → 2024-04-09 14:07 | Outpatient (BNVA) | payer BC, SELFPAY | PROVIDERS: PCP Nurse Practitioner; Visit Provider Physician Assistant ==

== ENCOUNTER 2024-04-13 13:29 | Outpatient (REF) | payer BC, SELFPAY ==
--- NOTE | ~2024-04-13 | XR_ITS ---
EXAMINATION: XR CHEST CLINICAL INFORMATION: Cough with wheezing for 3 days COMPARISON: Chest 06/08/2021 TECHNIQUE: 2 views of the chest were obtained. FINDINGS: No significant abnormality is noted involving the heart, lungs, mediastinum, bony thorax or soft tissues. XR/XR chest 2V IMPRESSION: No acute disease.
== END 2024-04-13 13:30 | disposition home or self-care (01) ==
LOC: HO.HHCX 13:29
PROVIDERS: Visit Provider Internal Medicine
DX: R05.9 Cough, unspecified (principal)
CPT/HCPCS: 71046

== ENCOUNTER 2024-04-16 18:06 | Outpatient (REF) | payer BC, SELFPAY ==
[2024-04-16 18:17] LABS: Appearance Urine Clear; Color Urine Other; Glucose Urine UA Negative (Negative); Leukocyte Esterase Urine Negative (Negative); Nitrite Urine Negative (Negative); Urine Blood Negative (Negative); Urine Ketones Negative (Negative); Urine Protein Trace mg/dL (Neg-Trace)
[2024-04-16 18:23] LABS: Bacteria Urine None Seen (None Seen); Hyaline Casts Urine 0-2 /LPF (0-2); RBC Urine 0-2 /HPF (0-2); Squamous Epithelial Cell Urine 0-2 /HPF (0-2); WBC Urine 0-5 /HPF (0-5)
== END 2024-04-16 18:07 | disposition home or self-care (01) ==
LOC: HO.HHCLNP 18:06
PROVIDERS: Visit Provider Registered Nurse
DX: R39.9 Unspecified symptoms and signs involving the genitourinary system (principal)
CPT/HCPCS: 81001

== ENCOUNTER 2024-04-17 13:02 | Outpatient (REF) | payer BC, SELFPAY ==
[2024-04-17 16:28] LABS: Anion Gap 12 (12-20); Blood Urea Nitrogen 14 mg/dL (9-16); Calcium 10.1 mg/dL (8.4-10.2); Carbon Dioxide 26 mmol/L (22-29); Chloride 107 mmol/L (96-108); Estimated Glomerular Filt Rate > 60; Glucose Random 103 mg/dL (60-115); Potassium 4.3 mmol/L (3.3-5.1); Sodium 141 mmol/L (135-145)
[2024-04-17 16:42] LABS: Prostate Specific Antigen 2.14 ng/mL (<0.05-4.0)
== END 2024-04-17 13:03 | disposition home or self-care (01) ==
LOC: HO.HHCL 13:02
PROVIDERS: Visit Provider Registered Nurse
DX: R39.9 Unspecified symptoms and signs involving the genitourinary system (principal); Z12.5 Encounter for screening for malignant neoplasm of prostate
CPT/HCPCS: 36415; 80048; 84153

== ENCOUNTER 2024-04-21 08:58 | Outpatient (AMB) | payer BC, SELFPAY ==
--- NOTE | 2024-04-21 09:00 | A.OFFVIS_ITS ---
Vital Signs 04/21/24 09:04 Height 5 ft 9 in Weight 219 lb BMI 32.3 BP 139/86 Blood Pressure Location Rt brachial Position Sitting Pulse 98 Intake Visit Reasons: Hemorrhoids Intake Note: Patient referred by Anastasiya Maddox PA-C (GI) for hemorrhoids. Patient c/o: bleeding with BM. Had pain episode 2m ago while in [place]. Had to go to ER and was prescribed Proctosol ointment which helped but now experiencing burning sensation when applying it. *2nd concern painful, burning with urinating. Does not see urologist. *3rd concern Going through txt for tick bite. Finished doxycycline course. Upper endoscopy: 06-20-2021. 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 He has been told he has hemorrhoids and has been prescribed topical cream which offers some relief. Because of persistent so symptoms he presents here. Patient has never had colonoscopy before. He does have history of occasional constipation and hard stool. He denies any anal receptive practice. He has not noticed any change in the caliber of his stool. Chart was reviewed and patient evaluated [facility] Medical History Hx of flexible sigmoidoscopy H/O babesiosis COVID-19 vaccine series completed History of COVID-19 GERD (gastroesophageal reflux disease) Social History Are you a primary healthcare financial analyst to a significant other at home: No Do you presently have visiting nurse or other home services: No Alcohol intake: never Patient Tobacco Use Status: Never used Tobacco Physical Exam Vital Signs: Last Vital Signs Pulse 98 04/21/24 09:04 BP 139/86 04/21/24 09:04 BMI result Body Mass Index 32.3 GI Other: Abdomen is soft, benign. Rectal exam demonstrates a very large posterior anal fissure. No obvious external hemorrhoids demonstrated. With Valsalva no obvious internal hemorrhoids demonstrated. Rectal exam was deferred secondary to patient's marked discomfort Assessment & Plan Assessment & Plan (1) Anal fissure: Code(s): K60.2 - Anal fissure, unspecified Category: Surgical Plan Patient is tentatively scheduled to see GI in August for colonoscopy. We will see if we can make for an earlier appointment for him. In the meantime, patient has been given recommendations regarding his posterior anal fissure including drinking more water, eat more roughage, raised brown, other suggestions include Metamucil, Citrucel, Senokot etc.. Patient should avoid prolonged sitting on the toilet. Patient will see me in approximately 6 weeks' time for follow-up or p.r.n.. All questions answered. Coding Level of Care Code New Pt Level 4 (31735) Diagnoses Anal fissure K60.2
[2024-04-21 09:04] VITALS: BP 139/86; PULSE 98; BMI 32.3
== END 2024-04-21 09:18 | disposition home or self-care (01) ==
PROVIDERS: PCP Nurse Practitioner; Referring Provider Physician Assistant; Visit Provider Surgery
DX: K60.2 Anal fissure, unspecified (principal)
CPT/HCPCS: 99204

== ENCOUNTER → 2024-04-21 08:58 | Outpatient (BNVA) | payer BC, SELFPAY | PROVIDERS: PCP Nurse Practitioner; Referring Provider Physician Assistant; Visit Provider Surgery ==

== ENCOUNTER 2024-05-13 13:33 | Outpatient (AMB) | payer BC, SELFPAY ==
[2024-05-13 13:37] VITALS: BMI 32.6
--- NOTE | 2024-05-13 13:37 | A.OFFVIS_ITS ---
Vital Signs 05/13/24 13:37 Height 5 ft 9 in Weight 221 lb BMI 32.6 Intake Visit Reasons: Rectal Bleeding - needs colonoscopy Intake Note: This patient was referred by for an assessment for rectal bleeding, colonoscopy. Patient c/o; reports rectal bleeding has improved, reports has been eating high fiber diet, reports never had colonoscopy. 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 Accompanied by: Self / Same As Patient Allergies No Known Allergies Allergy (Verified 05/13/24 13:38) Medication List - Last Reconciled 05/13/24 by Fly Adair MD albuterol sulfate 90 mcg/actuation inhalation atovaquone 5 mL PO BID bisacodyl (Dulcolax (bisacodyl)) 20 mg (4 x 5 mg) PO ONCE PRN 1 day famotidine (Acid Controller) 1 tab PO DAILY PRN hydrocortisone 2.5% (Proctosol HC) 1 appl AR BEDTIME PRN hydroxyzine HCl 1.5 tabs PO BEDTIME PRN lisinopril 5 mg PO DAILY omeprazole 1 cap PO DAILY polyethylene glycol 3350 (Miralax) 238 grams PO ONCE 1 day psyllium husk (Metamucil) 1 tbsp PO DAILY 30 days rosuvastatin 10 mg PO BEDTIME HPI HPI Rectal Bleeding - needs colonoscopy: Details: 68-year-old male referred for colonoscopy. He has known hemorrhoid issues for so many years now. He says that about 2 months ago, he was in [place] on vacation and had passage of bright blood per rectum. He was told by his doctor there to undergo a colonoscopy. He has never had any colonoscopy in the past. He does state that he has had this issue of small amounts of blood per rectum for many years now. He also has had this periodic pain with this anus with bowel movements. He was diagnosed to have hemorrhoids in the past and was seen by Dr. Schaefer for anal pain recently and was noted to have a fissure. He says that his pain had improved after he had been on high-fiber diet. He denies any family history of colon cancer. He says he is in good health overall. [facility] Medical History (Updated 05/13/24 @ 14:03 by Fly Adair MD) Rectal bleed Hx of flexible sigmoidoscopy H/O babesiosis COVID-19 vaccine series completed History of COVID-19 GERD (gastroesophageal reflux disease) Social History Are you a primary care mgr to a significant other at home: No Do you presently have visiting nurse or other home services: No Alcohol intake: never Patient Tobacco Use Status: Never used Tobacco Review of Systems Const Denies chills and Denies fever(s) Card Denies chest pain, Denies dyspnea and Denies dyspnea on exertion Resp Denies cough, Denies dyspnea and Denies dyspnea on exertion GI Reports hematochezia and Denies change in bowel habits Denies hematuria and Denies difficulty urinating Musc Denies back pain and Denies limited range of motion Neuro Denies focal weakness and Denies convulsions Psych Denies depression and Denies mood swings Physical Exam Vital Signs: BMI result Body Mass Index 32.6 Const General: comfortable and no acute distress Orientation/consciousness: patient oriented x3 Neck Neck: Yes no lymphadenopathy Resp Auscultation: clear to auscultation bilaterally Cardio Rhythm: regular rhythm GI Palpation (GI): Soft to palpation, nontender and no guarding Neuro General: patient oriented x3 Assessment & Plan Assessment & Plan (1) Rectal bleed: Code(s): K62.5 - Hemorrhage of anus and rectum Category: Medical Plan: He has had some passage of bright blood per rectum. He has never had any colonoscopy in the past. He was therefore recommended to undergo a colonoscopy. He does have a history of hemorrhoids as well as an anal fissure and is bleeding may be most likely from an outlet source I did explain to him the option of colonoscopy. I explained the technique of this procedure as the risks including but not limited to bleeding and perforation. I reviewed with him the benefits and alternatives. He says he understands and wants to proceed with colonoscopy. Coding Level of Care Code Est Pt Level 3 (46427) Diagnoses Rectal bleed K62.5
== END 2024-05-13 14:03 | disposition home or self-care (01) ==
PROVIDERS: PCP Internal Medicine; Visit Provider Surgery
DX: K62.5 Hemorrhage of anus and rectum (principal)
CPT/HCPCS: 99213

== ENCOUNTER → 2024-05-13 13:33 | Outpatient (BNVA) | payer BC, SELFPAY | PROVIDERS: PCP Internal Medicine; Visit Provider Surgery ==

== ENCOUNTER 2024-05-24 10:41 | Emergency (ER) | payer BC, SELFPAY ==
[2024-05-24 10:44] VITALS: BP 158/97; PULSE 92; RESP 20; TEMP 36.6; O2SAT 99; BMI 32.5
--- NOTE | 2024-05-24 11:14 | ED_ITS ---
HPI - Male Genitourinary General Chief complaint: Urogenital-Male Stated complaint: UTI Time Seen by Provider: 05/24/24 11:14 Source: patient Mode of arrival: ambulatory Limitations: no limitations History of Present Illness ED Provider: Sommer HERRERA Narrative: Patient is a 68-year-old male presenting to the emergency department with complaint of dysuria for the past several days. States he was recently on a 21 day course of doxycycline for Lyme and his symptoms began shortly after completing the doxycycline. Denies any penile discharge. Denies any erythema or swelling to penis or scrotum. Denies any rashes or lesions to genital area. Denies history of DM. He is circumcised. Denies abdominal pain, nausea, vomiting, diarrhea or constipation. Reports occasional intermittent flank pain bilaterally. Denies fevers. Complains of rectal discomfort but has known anal fissure. States had urine tested 3 weeks ago and told he had proteinuria. Has been trying to drink water, cranberry juice. Denies recent unprotected intercourse or concern for STIs. Has appointment with urology on Saturday. Complaint: dysuria Onset (ago): day(s) Duration: constant Related Data Home Medications ?Medication ?Instructions ?Recorded ?Confirmed atovaquone 750 mg/5 mL oral 5 ml PO BID 06/13/21 05/13/24 suspension famotidine 10 mg tablet (Acid 1 tab PO DAILY PRN acid reflux 06/13/21 05/13/24 Controller) hydroxyzine HCl 10 mg tablet 1.5 tab PO BEDTIME PRN Anxiety 06/13/21 05/13/24 omeprazole 20 mg capsule,delayed 1 cap PO DAILY 06/13/21 05/13/24 release albuterol sulfate 90 mcg/actuation inhalation 05/13/24 05/13/24 aerosol inhaler lisinopril 5 mg tablet 5 mg PO DAILY 05/13/24 05/13/24 rosuvastatin 10 mg tablet 10 mg PO BEDTIME 05/13/24 05/13/24 Previous Rx's ?Medication ?Instructions ?Recorded bisacodyl 5 mg tablet,delayed 20 mg (4 x 5 mg) PO ONCE PRN 04/09/24 release (Dulcolax (bisacodyl)) colonoscopy prep 1 day #4 tabs hydrocortisone 2.5 % topical cream 1 appl LA BEDTIME PRN hemorrhoids 04/09/24 with perineal applicator #30 grams (Proctosol HC) polyethylene glycol 3350 17 238 g PO ONCE laxative effect 1 04/09/24 gram/dose oral powder (Miralax) day #238 grams psyllium husk 3.4 gram/5.4 gram 1 tbsp PO DAILY 30 days #660 grams 04/09/24 oral powder (Metamucil) sodium,potassium,mag sulfates 17.5 See Rx Instructions PO .COMPLEX 05/13/24 gram-3.13 gram-1.6 gram oral soln #354 mL (Suprep Bowel Prep Kit) Allergies Allergy/AdvReac Type Severity Reaction Status Date / Time No Known Allergies Allergy Verified 05/24/24 10:45 Review of Systems 2 Review of Systems: As per HPI. Yes all other systems are reviewed and are negative Constitutional: Constitutional: Reports as per HPI [facility] Past Medical History Medical History (Updated 05/24/24 @ 13:12 by Lesley Novoa NP) Rectal bleed Hx of flexible sigmoidoscopy H/O babesiosis COVID-19 vaccine series completed History of COVID-19 GERD (gastroesophageal reflux disease) Social History Social History Are you a primary overnight caregiver to a significant other at home: No Do you presently have visiting nurse or other home services: No Alcohol intake: never Patient Tobacco Use Status: Never used Tobacco Advance Directives: No Advance Directives Information Provided: No Physical Exam 2 Vital Signs: Vital Signs: Last Vital Signs Temp 98 F 05/24/24 10:44 Pulse 92 05/24/24 10:44 Resp 20 05/24/24 10:44 BP 158/97 H 05/24/24 10:44 Pulse Ox 99 05/24/24 10:44 O2 Del Method Room Air 05/24/24 10:44 BMI result Body Mass Index 32.5 Vital signs have been reviewed and appear to be correct. Blood pressure elevated. Heart rate normal. Respiratory rate normal. Temperature normal. Oxygen saturation normal. Const: General: cooperative, healthy appearing and no acute distress O rientation/consciousness: oriented to person, oriented to place, oriented to time and patient oriented x3 Limitations: no limitations HEENT: Head: Yes normocephalic and Yes atraumatic Ears: external ears normal General nose exam: Normal external nose present Face and sinus: Yes face symmetric Mouth: oropharynx normal and moist mucous membranes Throat: Yes uvula midline Eyes: Pupils: Equal, round and reactive pupils present Neck: Neck: Yes normal visual inspection and Yes supple Resp: Effort & Inspection: normal respiratory effort and able to speak in complete sentences Auscultation: clear to auscultation bilaterally Cardio: Rate: regular rate Rhythm: regular rhythm Heart sounds: S1 normal heart sound present and S2 normal heart sound present GI: Other: Rectal exam chaperoned by CURTIS Cerda tech Palpation (GI): Soft to palpation and nontender Auscultation: n ormoactive bowel sounds Rectal Exam - Male: Yes normal sphincter tone and Yes prostate normal : General: Yes no CVA tenderness Back/Spine/Pelvis: Back: no CVA tenderness Skin: General skin exam: elasticity normal and turgor normal Neuro: General: oriented to person, oriented to place, oriented to time, patient oriented x3, moves all extremities, no focal motor deficits and CN's II- XI intact bilaterally Cranial nerves: Yes Equal, round and reactive pupils present Cognition (Neuro): normal cognition Extrem: General: Yes full ROM, Yes no pedal edema and Yes no calf tenderness Psych: Mental Status: mental status grossly normal Affect: normal affect Thought process: Normal thought process present Medical Decision Making Medical Decision Making [facility] Narrative: Patient is a 68-year-old male presenting to the emergency department with complaint of dysuria for the past several days. On exam patient is awake, A+Ox3, VS WNL, afebrile, normal neurological exam without focal deficits, physical exam findings as above. Given reported symptoms and physical exam findings, initial differential includes UTI, urethritis, STI, prostatitis, STEPHIE. Labs notable for no leukocytosis, no evidence of STEPHIE. Urinalysis is without evidence of infection. Physical exam findings not consistent with prostatitis, no prostate tenderness, he is afebrile. Patient has appointment scheduled with urology for this Saturday. CT NG pending, will contact patient with any positive results requiring treatment. Return precautions discussed at bedside. Follow up with PCP as well. Patient verbalized understanding of and agreement with plan. Differential Diagnosis Differential Diagnoses: The differential diagnosis associated with the presentation includes As per [facility] Lab Data [facility] Lab Attestation statement: I reviewed the patient's lab results. As per [facility] 05/24/24 11:43 05/24/24 11:43 Labs: Lab Results 05/24/24 05/24/24 Range/Units 11:29 11:43 WBC 5.9 (4.8-10.8) X10*3/uL RBC 5.54 (4.60-5.80) X10*6/uL Hgb 16.6 (14.0-18.0) g/dl Hct 47.4 (42.0-52.0) % MCV 85.6 (80.0-98.0) fL MCH 30.0 (27.0-33.0) pg MCHC 35.0 (31.0-36.0) g/dl RDW 12.8 (11.0-16.0) % Plt Count 182 (160-400) X10*3/uL MPV 9.7 (9.4-12.4) fL Immature Gran % (Auto) 0.3 (0.0-0.4) % Neut % (Auto) 63.3 (45-73) % Lymph % (Auto) 28.1 (20-40) % [place] % (Auto) 6.3 (2-11) % Eos % (Auto) 1.5 (0-4) % Baso % (Auto) 0.5 (0-2) % Lymph # (Auto) 1.7 (1.2-4.9) X10*3/uL [place] # (Auto) 0.4 (0.1-1.2) X10*3/uL Eos # (Auto) 0.1 (0.0-0.4) X10*3/uL Baso # (Auto) 0.0 (0.0-0.2) X10*3/uL Abs Immat Gran (auto) 0.02 (0.00-0.03) X10*3/uL Absolute Neuts (auto) 3.7 (2.0-8.3) x10*3/uL Absolute Nucleated RBC 0.000 (0.0-0.012) X10*3/uL Nucleated RBC % (auto) 0.0 (0.0-0.2) /100WBC Sodium 137 (135-145) mmol/L Potassium 4.2 (3.3-5.1) mmol/L Chloride 106 (96-108) mmol/L Carbon Dioxide 20 L (22-29) mmol/L Anion Gap 15 (12-20) BUN 13 (9-16) mg/dL Creatinine 0.93 (0.5-1.4) mg/dL Estim Creat Clear Calc 89.7 Estimated GFR > 60 Random Glucose 105 (60-115) mg/dL Calcium 9.3 D (8.4-10.2) mg/dL Total Bilirubin 0.5 (0.0-1.0) mg/dL AST 24 (5-37) U/L ALT 30 (0-40) U/L Alkaline Phosphatase 93 (39-117) U/L Total Protein 7.4 (6.5-8.0) g/dL Albumin 4.6 (3.5-5.0) g/dL Urine Color Yellow Urine Appearance Clear Urine pH 6.5 (5.0-9.0) Ur Specific [place] <= 1.005 (1.005-1.025) Urine Protein Negative (Neg-Trace) mg/dL Urine Glucose (UA) Negative (Negative) mg/dL Urine Ketones Negative (Negative) mg/dL Urine Blood Negative (Negative) Urine Nitrite Negative (Negative) Ur Leukocyte Esterase Negative (Negative) External Record Review External record reviewed: Inpatient record, Office record and Outpatient record Discharge Plan Discharge Clinical Impression: Dysuria Patient Disposition: Home, Self-Care Instructions: Dysuria (ED) Additional Instructions: You were evaluated in the emergency department today for dysuria. Your urine did not show evidence of a urinary tract infection and your labs were normal. Keep your appointment with urology on Saturday. Follow up with your primary care provider as well. Return to the emergency department if you develop worsening pain, fever, persistent vomiting, blood in your urine or any other concerning symptoms. Prescriptions: No Action famotidine [Acid Controller] 10 mg tablet 1 tab PO DAILY PRN (Reason: acid reflux) omeprazole 20 mg capsule,delayed release(DR/EC) 1 cap PO DAILY hydroxyzine HCl 10 mg tablet 1.5 tab PO BEDTIME PRN (Reason: Anxiety) atovaquone 750 mg/5 mL suspension 5 ml PO BID bisacodyl [Dulcolax (bisacodyl)] 5 mg tablet,delayed release (DR/EC) 20 mg PO ONCE PRN (Reason: colonoscopy prep) 1 Days Qty: 4 0RF Rx Instructions: Day before procedure @ 12 noon Take 4 tablets by mouth followed by large glass of water polyethylene glycol 3350 [Miralax] 17 gram/dose powder 238 g PO ONCE 1 Days Qty: 238 0RF Rx Instructions: Take as directed by mouth the day before your procedure. hydrocortisone [Proctosol HC] 2.5 % cream with perineal applicator 1 appl LA BEDTIME PRN (Reason: hemorrhoids) Qty: 30 3RF Metamucil 3.4 gram/5.4 gram powder 1 tbsp PO DAILY 30 Days Qty: 660 5RF Rx Instructions: mix into at least 8 oz of water or juice before administering albuterol sulfate 90 mcg/actuation HFA aerosol inhaler inhalation lisinopril 5 mg tablet 5 mg PO DAILY rosuvastatin 10 mg tablet 10 mg PO BEDTIME sodium,potassium,mag sulfates [Suprep Bowel Prep Kit] 17.5-3.13-1.6 gram recon soln See Rx Instructions PO .COMPLEX Qty: 354 0RF Rx Instructions: DILUTE; drink full amount early evening before AND next morning at least 2 hr before procedure; follow w 960 mL water PO [place] [facility] [place] [facility] [place] [facility] [place] Print Language: Hebrew
[2024-05-24 11:38] LABS: Appearance Urine Clear; Color Urine Yellow; Glucose Urine UA Negative (Negative); Leukocyte Esterase Urine Negative (Negative); Nitrite Urine Negative (Negative); PH 6.5 (5.0-9.0); Specific Gravity - Urine <= 1.005 (1.005-1.025); Urine Blood Negative (Negative); Urine Ketones Negative (Negative); Urine Protein Negative (Neg-Trace)
[2024-05-24 11:49] LABS: MANUAL DIFF FLAG NO
[2024-05-24 11:50] LABS: Basophils Percent Auto 0.5 % (0-2); Eosinophils Absolute Auto 0.1 X10*3/uL (0.0-0.4); Eosinophils Percent Auto 1.5 % (0-4); Hematocrit 47.4 % (42.0-52.0); Hemoglobin 16.6 g/dl (14.0-18.0); Imm Gran Abs Auto 0.02 X10*3/uL (0.00-0.03); Imm Gran Pct Auto 0.3 % (0.0-0.4); Lymphocytes Absolute Auto 1.7 X10*3/uL (1.2-4.9); Lymphocytes Percent Auto 28.1 % (20-40); Mean Corpuscular Volume 85.6 fL (80.0-98.0); Mean Platelet Volume 9.7 fL (9.4-12.4); Monocytes Absolute Auto 0.4 X10*3/uL (0.1-1.2); Monocytes Percent Auto 6.3 % (2-11); Neutrophils Absolute Auto 3.7 x10*3/uL (2.0-8.3); Neutrophils Percent Auto 63.3 % (45-73); Platelet Count 182 X10*3/uL (160-400); Red Blood Count 5.54 X10*6/uL (4.60-5.80); Red Cell Distribution Width 12.8 % (11.0-16.0); White Blood Count 5.9 X10*3/uL (4.8-10.8)
[2024-05-24 12:46] LABS: Alanine Aminotransferase 30 U/L (0-40); Albumin Level 4.6 g/dL (3.5-5.0); Alkaline Phosphatase 93 U/L (39-117); Anion Gap 15 (12-20); Aspartate Amino Transferase 24 U/L (5-37); Bilirubin Total 0.5 mg/dL (0.0-1.0); Blood Urea Nitrogen 13 mg/dL (9-16); Calcium 9.3 mg/dL (8.4-10.2); Carbon Dioxide 20 mmol/L (22-29); Chloride 106 mmol/L (96-108); Creatinine Clr Calc Pharmacy 89.7; Estimated Glomerular Filt Rate > 60; Glucose Random 105 mg/dL (60-115); Potassium 4.2 mmol/L (3.3-5.1); Sodium 137 mmol/L (135-145); Total Protein 7.4 g/dL (6.5-8.0)
[2024-05-24 13:17] VITALS: BP 158/97; PULSE 92; RESP 20; TEMP 36.6; O2SAT 99
[2024-05-24 13:55] LABS: CT PCR NOT DETECTED (Not Detect.); NG PCR NOT DETECTED (Not Detect.)
== END 2024-05-24 13:17 | disposition home or self-care (01) ==
PROVIDERS: Registered Nurse Emergency; Emergency Provider Emergency Medicine; PCP Internal Medicine
DX: N39.0 Urinary tract infection, site not specified (principal); R30.0 Dysuria; R10.9 Unspecified abdominal pain; Z79.899 Other long term (current) drug therapy
CPT/HCPCS: 36415; 80053; 81003; 85025; 87491; 87591; 99283

== ENCOUNTER 2024-05-27 12:44 | Outpatient (AMB) | payer BC, SELFPAY ==
--- NOTE | 2024-05-27 12:59 | A.OFFVIS_ITS ---
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 He is a patient of . He is seen for following urologic conditions - prostatitis Reports persistent urgency and frequency On exam has mildly boggy prostate Symptoms were concurrent with treatment for babesiosis and Lyme disease Trial anti-inflammatories [facility] Medical History (Updated 06/25/24 @ 11:05 by Fly Adair MD) Tubular adenoma History of sigmoidoscopy Abdominal hernia Habitual snoring Elevated cholesterol HTN (hypertension) Rectal bleed H/O babesiosis COVID-19 vaccine series completed History of COVID-19 GERD (gastroesophageal reflux disease) Surgical History History of esophagogastroduodenoscopy (EGD) Social History Are you a primary patient care nursing assistant to a significant other at home: No Do you presently have visiting nurse or other home services: No Alcohol intake: never Patient Tobacco Use Status: Never used Tobacco Review of Systems Const Denies chills and Denies fever(s) Card Reports no additional complaints and Denies syncope Resp Denies cough GI Denies abdominal pain and Denies heartburn Reports as per HPI and Denies change in libido Neuro Denies syncope Psych Denies change in libido Endo Denies change in libido Physical Exam Const General: cooperative, healthy appearing, comfortable and no acute distress Orientation/consciousness: patient oriented x3 HEENT Face and sinus: Yes normal facial exam Mouth: moist mucous membranes Neck Neck: Yes normal visual inspection, Yes full ROM and Yes trachea midline Chest Chest palpation & inspection: normal inspection of the chest Resp Effort & Inspection: normal respiratory effort, able to speak in complete sentences and no respiratory distress GI Inspection: Yes normal to inspection Rectal Exam - Male: Yes normal sphincter tone and Yes prostate normal Male General Exam: Yes normal external exam Penis: normal penis and circumcised Meatus: meatus normal Scrotum: scrotum normal Testes: Testes normal Back/Spine/Pelvis Cervical Spine: normal cervical lordosis Thoracic/Lumbar Spine: thoracic and lumbar spine normal to inspection Skin General skin exam: no rashes or lesions noted Neuro General: patient oriented x3, gait normal, tone normal and moves all extremities Extrem General: Yes normal to inspection and Yes capillary refill normal Office Procedures Post Void Residual Post Residual Void Post Void Residual (PVR): 44 [id number] Void Residual by ultrasound Results AMB Urinalysis, Automated UA Leukoctes 0 Bambi/uL Last Edit by Lalita Andrews [facility] on 05/27/24 13:13 UA Nitrite Negative Last Edit by Lalita Andrews [facility] on 05/27/24 13:13 UA Urobilinogen 0.2 mg/dL Last Edit by Lalita Andrews [facility] on 05/27/24 13:1 3 UA Protein 15 mg/dL Last Edit by Lalita Andrews [facility] on 05/27/24 13:13 UA pH 6.0 Last Edit by Lalita Andrews [facility] on 05/27/24 13:13 UA Blood 0 Naga/uL Last Edit by Lalita Andrews [facility] on 05/27/24 13:13 UA Specific [place] 1.025 Last Edit by Lalita Andrews [facility] on 05/27/24 13: 13 UA Ketone Negative Last Edit by Lalita Andrews [facility] on 05/27/24 13:13 UA Bilirubin 0 mg/dL Last Edit by Lalita Andrews [facility] on 05/27/24 13:13 UA Glucose 0 mg/dL Last Edit by Lalita Andrews [facility] on 05/27/24 13:13 Results Reviewed Results Reviewed: Laboratory Last Values Urine pH (Auto) 6.0 05/27/24 13:05 Specific [place] (Auto) 1.025 05/27/24 13:05 Urine Protein (Auto) 15 mg/dL 05/27/24 13:05 Glucose (UA)(Auto) 0 mg/dL 05/27/24 13:05 Urine Ketones (Auto) Negative 05/27/24 13:05 Urine Blood (Auto) 0 Naga/uL 05/27/24 13:05 Urine Nitrite (Auto) Negative 05/27/24 13:05 Urine Bilirubin (Auto) 0 mg/dL 05/27/24 13:05 Urine Urobilinogen (Auto) 0.2 mg/dL 05/27/24 13:05 Leukocyte Esterase (Auto) 0 Bambi/uL 05/27/24 13:05 Assessment & Plan Assessment & Plan (1) Prostatitis: Code(s): N41.9 - Inflammatory disease of prostate, unspecified Category: Medical Plan Six week follow-up Orders: Orders AMB Urinalysis Automated 05/27/24 Z13.9 - Encounter for screening, unspecified AMB Post Void Residual by ultrasound 05/27/24 N40.0 - Benign prostatic hyperplasia without lower urinary tract symptoms Medications: New sulfamethoxazole-trimethoprim 800-160 mg (Bactrim DS) 1 tab PO BID 28 tabs 0RF 14 days N41.9 - Inflammatory disease of prostate, unspecified, N39.0 - Urinary tract infection, site not specified meloxicam 15 mg PO DAILY 30 tabs 0RF 30 days N41.9 - Inflammatory disease of prostate, unspecified, R10.31 - Right lower quadrant pain, R10.32 - Left lower quadrant pain Patient Instructions: Imaging studies, laboratory and physical exam results were discussed and reviewed in detail. No major barriers to patient understanding were identified. An opportunity to ask questions regarding the treatment plan was provided. All questions were answered. The patient expressed understanding and agreement with the above treatment plan. The patient is aware they should contact our office by phone for worsening of their current condition or the appearance of new urologic symptoms. Compliance is encouraged with any medications and followup testing that is ordered. It is a privilege to participate in the urologic care of your patient. If you have any questions or concerns regarding treatment for the above conditions, or other urologic issues, please do not hesitate to contact me. The office telephone contact is [phone]. This note is constructed using voice recognition software. While every effort has been made to ensure accuracy educational programming director errors may have been included. Yours sincerely, Dr Flavio Piper MD, [facility] - Urology Providers of Expert, Compassionate Care for the Genitourinary System Coding Level of Care Code New Pt Level 4 (00213) Diagnoses Prostatitis N41.9 CPT Codes Post Residual Void - PVR CPT Code: 60087-Pqfw Void Residual by ultrasound ([id number])
== END 2024-05-27 13:49 | disposition home or self-care (01) ==
PROVIDERS: PCP Internal Medicine; Visit Provider Urology
DX: N41.9 Inflammatory disease of prostate, unspecified (principal)
CPT/HCPCS: 99204

== ENCOUNTER → 2024-05-27 12:44 | Outpatient (BNVA) | payer BC, SELFPAY | PROVIDERS: PCP Internal Medicine; Visit Provider Urology | DX: N41.9 Inflammatory disease of prostate, unspecified (principal); N39.0 Urinary tract infection, site not specified; N40.0 Benign prostatic hyperplasia without lower urinary tract symptoms; Z80.42 Family history of malignant neoplasm of prostate | CPT/HCPCS: 51798; 81003 ==

== ENCOUNTER 2024-06-12 06:52 | Day surgery (SDC) | payer MEDICARE, SELFPAY ==
[2024-06-02 14:37] VITALS: BMI 32.2
--- NOTE | 2024-06-10 14:27 | P.CONAN_ITS ---
Documented by User: Izabella Oliva NP 06/10/24 14:27 HPI - Anesthesia Eval Consult details Narrative: 69yo M for Colonoscopy with Possible Polypectomy PMFSH Active Problems Active Problems: All Active Problems Prostatitis (Acute) Anal fissure (Acute) Hemorrhoids (Acute) Encounter for screening colonoscopy (Acute) Rectal bleed (Acute) Past Medical History Medical History (Updated 06/12/24 @ 07:12 by Germaine Bennett, RN) History of sigmoidoscopy Abdominal hernia Habitual snoring Elevated cholesterol HTN (hypertension) Rectal bleed H/O babesiosis COVID-19 vaccine series completed History of COVID-19 GERD (gastroesophageal reflux disease) Surgical History Surgical History (Updated 06/02/24 @ 14:22 by Ama Grewal RN) History of esophagogastroduodenoscopy (EGD) Social History Social History Are you a primary home care music therapist to a significant other at home: No Do you presently have visiting nurse or other home services: No Alcohol intake: never Patient Tobacco Use Status: Never used Tobacco Use of substances other than those prescribed or required for medical reasons: No Have you been hit, kicked, punched, or otherwise hurt by someone within the past year? If so, by whom?: No Are you DNR?: No Advance Directives: No Advance Directives Information Provided: Yes Advance Directives on File: No Recently lost weight without trying: No Nutrition Risks: No Nutritional Risk Poor oral hygiene: Yes (lower bridge in the front, 2 missing) Meds Allergies Allergy/AdvReac Type Severity Reaction Status Date / Time No Known Allergies Allergy Verified 06/12/24 07:12 Home Medications ?Medication ?Instructions ?Recorded ?Confirmed ?Last Taken ?Type lisinopril 5 mg tablet 5 mg PO DAILY 05/13/24 06/12/24 06/11/24 History rosuvastatin 10 mg tablet 10 mg PO DAILY 05/13/24 06/12/24 Unknown History psyllium husk 3.4 gram/5.4 gram 1.5 tbsp PO DAILY 06/02/24 06/12/24 Unknown History oral powder (Metamucil) Exam Height,Weight and Vital Signs: Height 5 ft 9 in Weight 98.883 kg Pertinent Lab Results Pertinent Lab Results: Laboratory Tests 05/24/24 11:43 WBC 5.9 Hgb 16.6 Hct 47.4 Plt Count 182 Sodium 137 Potassium 4.2 Chloride 106 Carbon Dioxide 20 L BUN 13 Creatinine 0.93 Assessment and Plan Assessment Anesthesia Assessment: Chart Reviewed Documented by User: Demetri Bey MD 06/12/24 08:17 [facility] Past Medical History Medical History (Updated 06/12/24 @ 07:12 by Germaine Bennett RN) History of sigmoidoscopy Abdominal hernia Habitual snoring Elevated cholesterol HTN (hypertension) Rectal bleed H/O babesiosis COVID-19 vaccine series completed History of COVID-19 GERD (gastroesophageal reflux disease) Family History Family history of problems with anesthesia: No Surgical History Surgical History (Updated 06/02/24 @ 14:22 by Ama Grewal RN) History of esophagogastroduodenoscopy (EGD) History of Problems with Anesthesia: No Social History Social History Are you a primary home care music therapist to a significant other at home: No Do you presently have visiting nurse or other home services: No Alcohol intake: never Patient Tobacco Use Status: Never used Tobacco Use of substances other than those prescribed or required for medical reasons: No Have you been hit, kicked, punched, or otherwise hurt by someone within the past year? If so, by whom?: No Are you DNR?: No Advance Directives: No Advance Directives Information Provided: Yes Advance Directives on File: No Recently lost weight without trying: No Nutrition Risks: No Nutritional Risk Poor oral hygiene: Yes (lower bridge in the front, 2 missing) Meds Allergies Allergy/AdvReac Type Severity Reaction Status Date / Time No Known Allergies Allergy Verified 06/12/24 07:12 Home Medications ?Medication ?Instructions ?Recorded ?Confirmed ?Last Taken ?Type lisinopril 5 mg tablet 5 mg PO DAILY 05/13/24 06/12/24 06/11/24 History rosuvastatin 10 mg tablet 10 mg PO DAILY 05/13/24 06/12/24 Unknown History psyllium husk 3.4 gram/5.4 gram 1.5 tbsp PO DAILY 06/02/24 06/12/24 Unknown History oral powder (Metamucil) Exam Airway Mallampati Class: I TM Dist: <=3cm Neck ROM: Full Loose/Missing/Broken Teeth: No Heart: ok Lungs: ok Assessment and Plan Assessment Anesthesia Assessment: Anesthesia Plan Discussed Final Anesthetic Review Family History of Problems with Anesthesia: No History of Problems with Anesthesia: No NPO: Yes ASA Class: III Final Preanesthetic Review: No Changes in Pt Med Stat, Meds/Allgs Chart Reviewed, Consent Obtained/Reviewed and Anes Risks/Benef Reviewed Patient Risk: Intermediate Procedure Risk: Low Anesthetic Plan Anesthetic Plan: MAC: and Agree w/ Assess. and Plan Disposition: Standard PACU
[2024-06-12 07:03] VITALS: BMI 32.3
[2024-06-12 07:13] VITALS: BP 154/96; PULSE 82; RESP 16; TEMP 36.7; O2SAT 98
[2024-06-12] MEDS: Lactated Ringers 1,000 ML 100 ML IVCONT (07:38)
--- NOTE | 2024-06-12 08:08 | MHC.SHP ---
Pre-Procedural Eval Section A - 24 Hr Update-Section A only Date of Service: 06/12/24 Section B - Complete if H&P > 30 days Chief Complaint: Hemorrhage of anus and rectum Details of Present Illness: Has passage of bright blood per rectum Relevant Social History: None Present Medications: see Short Stay Collaborative assessment Medical History: Significant History (History of prostatitis, hyperlipidemia, hypertension) Allergies: Allergies Allergy/AdvReac Type Severity Reaction Status Date / Time No Known Allergies Allergy Verified 06/12/24 07:12 Review of Systems Sugical H&P ROS: Negative: Constitution, Cardiovascular, Respiratory, Neurological, Psychiatric, Hem-Onc, Allergic/Immunologic, Gastrointestinal, Genitourinary, Musculoskeletal, Integumentary, Endocrine and Eyes/Ears/Nose/Throat Exam Surgical H&P Exam: Normal: HEENT, Normal: Heart, Normal: Lungs, Normal: Extremities, Normal: Abdomen, Normal: Skin and Normal: Neurological Plan Diagnosis/Plan: Unchanged I have reviewed the history and physical and performed a pertinent physical examination on my patient. No changes have occurred unless specified. Time Spent With Patient Time: Total time managing care of this patient today ____ minutes.
--- NOTE | 2024-06-12 08:43 | W.PM.OPN ---
Operative Note Operative Note Date of Service: 06/12/24 Narrative: Preop diagnosis: Rectal bleeding, colon cancer screening Postop diagnosis: 1. polyp, about 1 cm on a stalk, at level 25 cm 2. Internal external hemorrhoids Procedure: Colonoscopy with polypectomy using hot snare x1 Surgeon: Fly Adair MD Patient is a 69-year-old male with note of periodic passage of bright blood per rectum. He has never had any colonoscopy in the past. I therefore recommended proceeding with colonoscopy. He understood the technique of the planned procedure as well as the risks, benefits and alternatives. The patient was brought to the operating room and placed in left lateral decubitus position under monitored anesthesia care. A surgical time-out was done. A full digital rectal exam was done and this did not reveal any significant anal lesions. The tip of the Olympus colonoscope was gently introduced through the anal orifice advanced with insufflation all the way to the cecum. The cecum was intubated. The cecum was identified by visualization of the ileocecal valve as well as the appendiceal orifice. The cecal mucosa was unremarkable. The scope was gradually withdrawn with careful examination of the entire colonic mucosa being done with scope withdrawal. The patient had adequate bowel prep so it was unlikely that any lesion may have been missed. At level 25 cm, there was note of a polyp on a stalk. This was about a 1 cm polyp. This was removed using hot snare. There was note of good hemostasis. The rectum was reached and there were no lesions seen. There was note of small but prominent internal external hemorrhoids in the anal canal.. The scope was then withdrawn completely with desufflation. The patient tolerated the procedure well. There were no immediate complications. Depending on the path report, I may recommend a follow-up colonoscopy in 5 years.
[2024-06-12 08:45] VITALS: BP 124/83; PULSE 75; RESP 18; TEMP 36.3; O2SAT 92
[2024-06-12 09:03] VITALS: BP 138/84; PULSE 74; RESP 18; TEMP 36.1; O2SAT 96
== END 2024-06-12 09:42 | disposition home or self-care (01) ==
PROVIDERS: PCP Internal Medicine; Visit Provider Surgery
PROC: 0DBE8ZZ Excision of Large Intestine, Via Natural or Artificial Opening Endoscopic (ICD-10-PCS; CPT 45385; principal; 2024-06-12 08:30)
DX: Z12.11 Encounter for screening for malignant neoplasm of colon (principal); D12.5 Benign neoplasm of sigmoid colon; K64.8 Other hemorrhoids; K64.4 Residual hemorrhoidal skin tags; K21.9 Gastro-esophageal reflux disease without esophagitis; I10 Essential (primary) hypertension; E78.00 Pure hypercholesterolemia, unspecified; Z86.19 Personal history of other infectious and parasitic diseases; Z79.899 Other long term (current) drug therapy
CPT/HCPCS: 45385; 88305; J2704

== ENCOUNTER → 2024-06-12 06:52 | Outpatient (BNV) | payer MEDICARE, SELFPAY | PROVIDERS: PCP Internal Medicine; Visit Provider Surgery | DX: K63.5 Polyp of colon (principal); K62.5 Hemorrhage of anus and rectum; K64.8 Other hemorrhoids | CPT/HCPCS: 45385 ==

== ENCOUNTER 2024-06-25 10:29 | Outpatient (AMB) | payer BC, SELFPAY ==
--- NOTE | 2024-06-25 10:29 | MHC.OFFVIS ---
Vital Signs 06/25/24 10:30 Height 5 ft 9 in Weight 219 lb 0.009 oz BMI 32.3 Intake Visit Reasons: S/P colonoscopy Intake Note: This patient presents for a follow-up status post colonoscopy. Pt c/o; reports no complaints. Occupational Therapy Technician Required: No Accompanied by: Brother Allergies No Known Allergies Allergy (Verified 06/25/24 10:35) Medication List - Last Reconciled 06/25/24 by Fly Adair MD lisinopril 5 mg PO DAILY meloxicam 15 mg PO DAILY 30 days psyllium husk (Metamucil) 1.5 tbsp PO DAILY rosuvastatin 10 mg PO DAILY HPI HPI S/P colonoscopy: Details: He underwent a colonoscopy for screening last June2024. He tolerated procedure well. He denies any problems post procedure. [facility] Medical History (Updated 06/25/24 @ 11:05 by Fly Adari MD) Tubular adenoma History of sigmoidoscopy Abdominal hernia Habitual snoring Elevated cholesterol HTN (hypertension) Rectal bleed H/O babesiosis COVID-19 vaccine series completed History of COVID-19 GERD (gastroesophageal reflux disease) Surgical History History of esophagogastroduodenoscopy (EGD) Social History Are you a primary care assistant to a significant other at home: No Do you presently have visiting nurse or other home services: No Alcohol intake: never Patient Tobacco Use Status: Never used Tobacco Review of Systems Const Denies chills and Denies fever(s) Card Denies chest pain Resp Denies cough GI Denies abdominal pain Physical Exam Vital Signs: BMI result Body Mass Index 32.3 Const General: comfortable and no acute distress Resp Effort & Inspection: normal respiratory effort GI Palpation (GI): Soft to palpation, not firm and nontender Assessment & Plan Assessment & Plan (1) Tubular adenoma: Code(s): D36.9 - Benign neoplasm, unspecified site Category: Medical Plan: Status post colonoscopy for screening last June 12, 2024. I removed 1 large polyp, about 1 cm, on a stalk. The path report shows a tubular adenoma without dysplasia. I explained to him that because of the size of the polyp, I would recommend repeating the colonoscopy in 3-5 years. He understands the plan and says he will not forget to schedule for his colonoscopy. Coding Level of Care Code Est Pt Level 2 (83109) Diagnoses Tubular adenoma D36.9
[2024-06-25 10:30] VITALS: BMI 32.3
== END 2024-06-25 11:33 | disposition home or self-care (01) ==
PROVIDERS: PCP Internal Medicine; Visit Provider Surgery
DX: D12.5 Benign neoplasm of sigmoid colon (principal)
CPT/HCPCS: 99213

== ENCOUNTER → 2024-06-25 10:29 | Outpatient (BNVA) | payer BC, SELFPAY | PROVIDERS: PCP Internal Medicine; Visit Provider Surgery ==

== ENCOUNTER 2024-07-02 08:31 | Outpatient (REF) | payer BC, SELFPAY ==
[2024-07-02 12:32] LABS: Cholesterol 202 mg/dL (<200); HDL Cholesterol 62 mg/dL (>40); LDL Cholesterol Calculated 122 mg/dL (<100); Triglycerides 94 mg/dL (<150)
[2024-07-02 12:51] LABS: TSH reflex Free T4 3.23 uIU/mL (0.32-4.0)
[2024-07-02 12:58] LABS: Reflex LDLD? No
== END 2024-07-02 08:32 | disposition home or self-care (01) ==
LOC: HO.HHCL 08:31
PROVIDERS: Visit Provider Internal Medicine
DX: E78.5 Hyperlipidemia, unspecified (principal)
CPT/HCPCS: 36415; 80061; 84443

== ENCOUNTER 2024-07-03 10:03 | Outpatient (REF) | payer BC, SELFPAY ==
[2024-07-03 11:08] LABS: Urine Cytology See Pathology rpt
== END 2024-07-03 10:04 | disposition home or self-care (01) ==
LOC: HO.HHCL 10:03
PROVIDERS: Visit Provider Internal Medicine
DX: Z13.89 Encounter for screening for other disorder (principal)
CPT/HCPCS: 88112

== ENCOUNTER 2024-07-09 13:50 | Outpatient (AMB) | payer BC, SELFPAY ==
--- NOTE | 2024-07-09 13:51 | A.OFFVIS_ITS ---
Intake Visit Reasons: 6w follow up Intake Note: Patient is present for Telephone 6w follow up prostatitis Edger Saw Operator Required: No Allergies No Known Allergies Allergy (Verified 06/25/24 10:35) HPI Comments Details: Leandro is a pleasant male. He is a patient of . He is seen for following urologic conditions - prostatitis Telemedicine Evaluation 15 min Consultation Doximity Jesica Video attempted Slow improvement with anti-inflammatories Does feel he was doing better after finishing treatment for babesiosis and Lyme disease Does have upcoming repeat test Follow-up in 6 months [facility] Medical History (Updated 06/25/24 @ 11:05 by lFy Adair MD) Tubular adenoma History of sigmoidoscopy Abdominal hernia Habitual snoring Elevated cholesterol HTN (hypertension) Rectal bleed H/O babesiosis COVID-19 vaccine series completed History of COVID-19 GERD (gastroesophageal reflux disease) Surgical History History of esophagogastroduodenoscopy (EGD) Social History Are you a primary urgent care nurse practitioner to a significant other at home: No Do you presently have visiting nurse or other home services: No Alcohol intake: never Patient Tobacco Use Status: Never used Tobacco Review of Systems Const All systems reviewed & are unremarkable except as noted in HPI and below Reports no additional complaints Resp Reports no additional complaints GI Reports no additional complaints Reports as per HPI Musc Reports no additional complaints Physical Exam Telemedicine evaluation Appropriate responses Regular breathing rate and rhythm HEENT Head: Yes normal to inspection Ears: hearing grossly normal bilaterally Eyes General: appearance normal, both eyes and all related structures Neck Neck: Yes normal visual inspection Chest Chest palpation & inspection: normal inspection of the chest Resp Effort & Inspection: normal respiratory effort and able to speak in complete sentences Telehealth Telehealth Telehealth Platform: [employer] Location of provider rendering services: practice address Location of patient: address on file Patient Identification confirmed using: Name, : Yes Telehealth method: video Patient verbally consented to treatment: Yes Patient verbally consented to billing insurance company: Yes Patient informed of any privacy concerns related to visit: Yes Minutes spent on Phone/Video with Pt.: 15 Assessment & Plan Assessment & Plan (1) Prostatitis: Code(s): N41.9 - Inflammatory disease of prostate, unspecified Category: Medical Plan Six-month follow-up office Patient Instructions: Imaging studies, laboratory and physical exam results were discussed and reviewed in detail. No major barriers to patient understanding were identified. An opportunity to ask questions regarding the treatment plan was provided. All questions were answered. The patient expressed understanding and agreement with the above treatment plan. The patient is aware they should contact our office by phone for worsening of their current condition or the appearance of new urologic symptoms. Compliance is encouraged with any medications and followup testing that is ordered. It is a privilege to participate in the urologic care of your patient. If you have any questions or concerns regarding treatment for the above conditions, or other urologic issues, please do not hesitate to contact me. The office telephone contact is [phone]. This note is constructed using voice recognition software. While every effort has been made to ensure accuracy business solutions architect errors may have been included. Yours sincerely, Dr Flavio Piper MD, [facility] - Urology Providers of Expert, Compassionate Care for the Genitourinary System Coding Level of Care Code Tele Est Pt Level 3 (66601) Diagnoses Prostatitis N41.9
== END 2024-07-09 14:31 | disposition home or self-care (01) ==
LOC: HO.HUSH 13:50
PROVIDERS: PCP Internal Medicine; Visit Provider Urology
DX: N41.9 Inflammatory disease of prostate, unspecified (principal)
CPT/HCPCS: 99213

== ENCOUNTER → 2024-07-09 13:50 | Outpatient (BNVA) | payer BC, SELFPAY | PROVIDERS: PCP Internal Medicine; Visit Provider Urology ==

== ENCOUNTER 2024-09-11 15:15 | Outpatient (REF) | payer BC, SELFPAY ==
[2024-09-11 16:49] LABS: Appearance Urine Clear; Color Urine Yellow; Glucose Urine UA Negative (Negative); Leukocyte Esterase Urine Negative (Negative); Nitrite Urine Negative (Negative); Urine Blood Negative (Negative); Urine Ketones Negative (Negative); Urine Protein Negative (Neg-Trace)
[2024-09-11 16:53] LABS: Bacteria Urine None Seen (None Seen); Hyaline Casts Urine 0-2 /LPF (0-2); RBC Urine 0-2 /HPF (0-2); Squamous Epithelial Cell Urine 0-2 /HPF (0-2); WBC Urine 0-5 /HPF (0-5)
== END 2024-09-11 15:16 | disposition home or self-care (01) ==
LOC: HO.HHCL 15:15
PROVIDERS: Visit Provider General Practice
DX: R80.9 Proteinuria, unspecified (principal)
CPT/HCPCS: 81001

== ENCOUNTER 2025-01-07 10:21 | Outpatient (AMB) | payer BC, SELFPAY ==
--- NOTE | 2025-01-07 10:22 | MHC.OFFVIS ---
Intake Visit Reasons: 6m follow up Intake Note: Patient is present for 6M F/U Urology Medication:NONE Antibiotic Allergy:NONE Blood Thinner:NONE Control Manager Required: No Allergies No Known Allergies Allergy (Verified 01/07/25 10:22) HPI Comments Details: Leandro is a pleasant male. He is a patient of . He is seen for following urologic conditions - prostatitis Telemedicine Evaluation 15 min Consultation Doximity Jesica Video attempted Slowly improved with anti-inflammatories Follow-up in 6 months in office with PSA [facility] Medical History (Updated 06/25/24 @ 11:05 by Fly Adair MD) Tubular adenoma History of sigmoidoscopy Abdominal hernia Habitual snoring Elevated cholesterol HTN (hypertension) Rectal bleed H/O babesiosis COVID-19 vaccine series completed History of COVID-19 GERD (gastroesophageal reflux disease) Surgical History History of esophagogastroduodenoscopy (EGD) Social History Are you a primary care process manager to a significant other at home: No Do you presently have visiting nurse or other home services: No Alcohol intake: never Patient Tobacco Use Status: Never used Tobacco Review of Systems Const All systems reviewed & are unremarkable except as noted in HPI and below Reports no additional complaints Resp Reports no additional complaints GI Reports no additional complaints Reports as per HPI Musc Reports no additional complaints Physical Exam Telemedicine evaluation Appropriate responses Regular breathing rate and rhythm HEENT Head: Yes normal to inspection Ears: hearing grossly normal bilaterally Eyes General: appearance normal, both eyes and all related structures Neck Neck: Yes normal visual inspection Chest Chest palpation & inspection: normal inspection of the chest Resp Effort & Inspection: normal respiratory effort and able to speak in complete sentences Telehealth Telehealth Telehealth Platform: [employer] Location of provider rendering services: practice address Location of patient: address on file Patient Identification confirmed using: Name, : Yes Telehealth method: video Patient verbally consented to treatment: Yes Patient verbally consented to billing insurance company: Yes Patient informed of any privacy concerns related to visit: Yes Minutes spent on Phone/Video with Pt.: 15 Assessment & Plan Assessment & Plan (1) Prostatitis: Code(s): N41.9 - Inflammatory disease of prostate, unspecified Category: Medical Plan Six-month follow-up PSA office Orders: Orders Prostate Specific Antigen 6 Months N41.9 - Inflammatory disease of prostate, unspecified Patient Instructions: This note is constructed using voice recognition software. While every effort has been made to ensure accuracy field services analyst errors may have been included. Imaging studies, laboratory and physical exam results were discussed and reviewed in detail. No major barriers to patient understanding were identified. An opportunity to ask questions regarding the treatment plan was provided. All questions were answered. The patient expressed understanding and agreement with the above treatment plan. The patient is aware they should contact our office by phone for worsening of their current condition or the appearance of new urologic symptoms. Compliance is encouraged with any medications and followup testing that is ordered. It is a privilege to participate in the urologic care of your patient. If you have any questions or concerns regarding treatment for the above conditions, or other urologic issues, please do not hesitate to contact me. The office telephone contact is [phone]. Sincerely, Dr Flavio Piper MD, [facility] - Urology Compassionate Specialist Care for the Genitourinary System Coding Level of Care Code Tele Est Pt Level 3 (77793) Diagnoses Prostatitis N41.9
--- OUTSIDE RECORDS SUMMARY | 2025-01-07 12:01 | XMS_ITS | Encounter Summary ---
Author Organization [employer] Address [address] [place] [address] [address] [place] [address] Care Team Providers Care Laundry Machine Tender Name Role Phone Lisette De Jesus MD Primary Care Provider + Encounter Details Date Type Department Care Team (Late st Contact Info) Description 06/26/[address] [facility]IC[facility] [address] [place], [place] [phone] Lisette De Jesus MD [address] [place], [place] [phone] Social History Tobacco Use Types Packs/Day Years Used Date Smoking Tobacco: Never Smokeless Tobacco: Never Alcohol Use Standard Drinks/Week Comments Never 0 (1 standard drink = 0.6 oz pur e alcohol) Depression Answer Date Recorded Patient Health Questionnaire-9 Score 0 06/26/2024 Patient Health Questionnaire-9 Score 0 06/26/2024 Last PHQ-9: Questionnaire Data Not on file 0 06/26/2024 Housing Stability Answer Date Recorded What is your housing situation today? I have lester sawyer 06/12/[address] you li ve. Do you have problems with any of the following? None of the above 06/12/2024 Food Insecurity Answer Date Recorded Within the past 12 months, y ou worried that your food would run out before you got money to buy more: Never True 06/12/2024 Within the past 12 months,th e food you bought just didn't last and you didn't have enough money to get more: Never True 12/2023 Transportation Answer Date Recorded In the past 12 months, has l ack of transportation kept you from medical appts, meetings, work or from getting things needed for daily living? No 06/12/2024 Utilities Answer Date Recorded In the past 12 months, has t he electric, gas, oil or water company threatened to shut off services in your home? No 06/12/2024 Depression Answer Date Recorded Patient Health Questionnaire-2 Score 0 06/26/2024 Sex and Gender Information Value Date Recorded Sex Assigned at Male 09/10/2022 10:37 AM EDT Legal Sex Male 10:37 AM EDT Gender Identity Male 09/10/2022 10:37 AM EDT Sexual Orientation Straight 09/10/2022 10 :37 AM EDT documented as of this encounter Plan of Treatment Not on file documented as of this encounter Procedures Procedure Name Priority Date/Time Associated Diagnosis Comments COLONOSCOPY Routine 06/12/2024 documented in this encounter Results * (ABNORMAL) Colonoscopy (06/12/2024) Colonoscopy Abnormal(A ) Normal [facility] Comment:TA Lisette De Jesus MD HEALTH MAINTENANCE Final Result [facility] [address] [place] [phone] documented in this encounter Visit Diagnoses Not on filedocumented in this encounter Additional Health Concerns Assessment Noted Time PHQ-9 Depression Total Score: 0 06/26/20 24 9:18 AM EDT documented as of this encounter Care Teams Laundry Machine Tender Relationship Specialty Start Date End Date Lisette De Jesus MD [address] [place] [id number] PCP - General Internal Medicine 03/04/24 documented as of this encounter
--- OUTSIDE RECORDS SUMMARY | 2025-01-07 12:02 | XMS_ITS | Patient Health Record ---
Author Organization [facility] Address [address] [place] [address] Care Team Providers Care Dynamometer Repairer Name Role Phone Doris Love Primary Care Provider Gavin Salcedo Jr Unavailable [phone] REASON FOR REFERRAL No Information MEDICATIONS Medication SIG (Take, Route, Fr equency, Duration) Notes Start Date End Date Status Mepron Active Oregano Active Vitamin C Active Curcumin 95 Active Resveratrol Active Azithromycin 250 MG as directed Orally Active Famotidine Active Stephany Assist Active IMMUNIZATIONS Vaccine Route Administration Date Status Comme nts Influenza Unknown 02/10/2020 Administered SOCIAL HISTORY Tobacco Use: Social History Observation Description Date Details (start date - stop date) Never Smoker NA - NA Sex Assigned At : Social History Observation Description Sex Assigned At Unknown Tobacco Use/Smoking Question Answer Notes Patient is a nonsmoker Alcohol Screen Question Answer Notes Did you have a drink containing alcohol in the p ast year? No Points 0 Interpretation Negative PROBLEMS Problem Type ICD Code Onset Dates Problem Status W/U Status Risk SNOMED Code Notes Problem Gastroesophageal reflux disease without esophagitis (K21.9) Active confirmed [id number] Problem GERD (gastroesophageal reflux disease) (K21.9) Active confirmed Gastroesophagea l reflux disease (342912184) PLAN OF TREATMENT Pending Test Test Name Order Date LIVER PROFILE 06/12/2021 Future Test Test Name Order Date UPPER GI ENDOSCOPY 05/17/2021 Insurance Providers Payer Name Payer Address Payer Phone Subscriber Number Group Number Insured Name Patient Relationship to Insured Coverage Start Date Coverage End Date [employer] PREFERRED [address] [place] [address] [id number] SIMA SANFORD Self - patient is the insured [facility] [employer] [facility] [address] [address] [place], [place] [phone] [id number] SIMA SANFORD Self - patient is the insured MEDICAL (GENERAL) HISTORY Medical History History ICD Code covid positive 09/2020 Lyme disease 07/31, sleep apnea Babesiosis Hyperlipidemia Gastroesophageal reflux disease Anxiety Surgical History Surgery Date(Month/Year)
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
== END 2025-01-07 10:51 | disposition home or self-care (01) ==
LOC: HO.HUSH 10:21
PROVIDERS: PCP Internal Medicine; Visit Provider Urology
DX: N41.9 Inflammatory disease of prostate, unspecified (principal)
CPT/HCPCS: 99213

== ENCOUNTER 2025-06-24 09:06 | Outpatient (REF) | payer BC, SELFPAY ==
--- OUTSIDE RECORDS SUMMARY | 2025-06-24 09:30 | XMS_ITS | Patient Health Record ---
Author Organization [facility] Address [address] [place] [address] Care Team Providers Care Director Of Kids Name Role Phone Doris Love Primary Care Provider Gavin Salcedo Jr Unavailable [phone] Reason For Referral No Information Medications Medication SIG (Take, Route, Fr equency, Duration) Notes Start Date End Date Status Mepron Active Oregano Active Vitamin C Active Curcumin 95 Active Resveratrol Active Azithromycin 250 MG as directed Orally Active Famotidine Active Stephany Assist Active Immunizations Vaccine Route Administration Date Status Comme nts Influenza Unknown 02/10/2020 Administered Social History Tobacco Use: Social History Observation Description Date Details (start date - stop date) Never Smoker NA - NA Tobacco Use/Smoking Question Answer Notes Patient is a nonsmoker Alcohol Screen Question Answer Notes Did you have a drink containing alcohol in the p ast year? No Points 0 Interpretation Negative Problems Problem Type SNOMED Code ICD Code Onset Dates Problem Status W/U Status Risk Notes Problem [id number] Gastroesophageal reflux disease without esophagitis (K21.9) Active confirmed Problem Gastroesophageal reflux disease (146871423) GERD (gastroesophageal reflux disease) (K21.9) Active confirmed Plan Of Treatment Pending Test Test Name Order Date LIVER PROFILE 06/12/2021 Future Test Test Name Order Date UPPER GI ENDOSCOPY 05/17/2021 Insurance Providers Payer Name Payer Address Payer Phone Subscriber Number Group Number Insured Name Patient Relationship to Insured Coverage Start Date Coverage End Date [employer] PREFERRED [address] [place] [address] [id number] SIMA SANFORD Self - patient is the insured [facility] [employer] [facility] [address] [address] [place], [place] [phone] [id number] SIMA SANFORD Self - patient is the insured Medical (General) History Medical History History ICD Code covid positive 09/2020 Lyme disease 07/31, sleep apnea Babesiosis Hyperlipidemia Gastroesophageal reflux disease Anxiety Surgical History Surgery Date(Month/Year)
--- OUTSIDE RECORDS SUMMARY | 2025-06-24 09:30 | XMS_ITS | Encounter Summary ---
Author Organization [employer] Address [address] [place] [address] 7 [place] [address] Care Team Providers Care Manager Department Name Role Phone Lisette De Jesus MD Primary Care Provider + Encounter Details Date Type Department Care Team ([facility] st Contact Info) Description 06/26/2024 Abstract [facility] [address] [place], [place] [phone] Lisette De Jesus MD [address] [place], [place] [phone] Social History Tobacco Use Types Packs/Day Years [...] AM EDT documented as of this encounter Functional Status * Over the past 2 weeks, how often have you been bothered by any of the following problems? Question Answer Date of Assessment Author Patient Health Questionnaire -2 Score 0 06/26/2024 9:18 AM EDT Dainna Teague MA * Over the last 2 weeks, how often have you been bothered by any of the following problems? Question Answer Date of Assessment Author Feeling nervous, anxious, or on edge 0 06/26/2024 9:19 AM EDT Dianna Teague MA Not being able to stop or co ntrol worrying 0 06/26/2024 9:19 AM EDT Dianna Teague MA Worrying too much about diff erent things 0 06/26/2024 9:19 AM EDT Dianna Teague MA Trouble relaxing 0 06/26/2024 9:19 AM EDT Dianna Mckeon MA Being so restless that it is hard to sit still 0 06/26/2024 9:19 AM CURTIST Dianna Teague MA Becoming easily annoyed or irritable 0 06/26/2024 9:19 AM EDT Dianna Teague MA Feeling afraid as if somethi ng awful might happen 0 06/26/2024 9:19 AM CURTIST Dianna Teague MA TRACY-7 Total Score 0 06/26/2024 9:19 AM CURTIST Dianna Teague MA * Over the past 2 weeks, how often have you been bothered by any of the following problems? Question Answer Date of Assessment Author Little interest or pleasure in doing things Not at all 06/26/2024 9:18 AM EDT Dianna Teague MA Feeling down, depressed, or hopeless Not at all 06/26/2024 9:18 AM CURTIST Dianna Teague MA Trouble falling or staying asleep, or sleeping too much Not at all 06/26/2024 9:18 AM EDT Dianna Gomez MA Feeling tired or having little energy Not at all 06/26/2024 9:18 AM EDT Dianna Teague MA Poor appetite or overeating Not at all 06/26/2024 9: 18 AM EDT Dianna Teague MA Feeling bad about yourself - or that you are a failure or have let yourself or your family down Not at all 06/26/2024 9:18 AM CURTIST Dianna Teague MA Trouble concentrating on things, such as reading the newspaper or watching television Not at all 06/26/2024 9:18 AM CURTIST Dianna Teague MA Moving or speaking so slowly that other people could have noticed? Or the opposite - being so fidgety or restless that you have been moving around a lot more than usual. Not at all 06/26/2024 9:18 AM EDT Dianna Miranda MA Thoughts that you would be better off or hurting yourself in some way Not at all 06/26/2024 9:18 AM CURTIST Zeina Teague MA Patient Health Questionnaire-9 Score 0 06/26/2024 9:18 AM EDT Alexandria Teague MA documented as of this encounter Plan of Treatment Not on file documented as of this encounter Procedures Procedure Name Priority Date/Time Associated Diagnosis Comments COLONOSCOPY Routine 06/12/2024 documented in this encounter Results * (ABNORMAL) Colonoscopy (06/12/2024) Colonoscopy Abnormal(A ) Normal [facility] Comment:TA Lisette De Jesus MD HEALTH MAINTENANCE Final Result [facility] [address] [place] [phone] documented in this encounter Visit Diagnoses Not on filedocumented in this encounter Additional Health Concerns Assessment Noted Time PHQ-9 Depression Total Score: 0 06/26/20 9:18 AM EDT documented as of this encounter Care Teams Manager Department Relationship Specialty Start Date End Date Lisette De Jesus MD [address] [place] [phone] PCP - General Internal Medicine 03/04/24 documented as of this encounter
[2025-06-24 12:13] LABS: Prostate Specific Antigen 1.91 ng/mL (<0.05-4.0)
== END 2025-06-24 09:07 | disposition home or self-care (01) ==
LOC: HO.HHCL 09:06
PROVIDERS: PCP Internal Medicine; Visit Provider Urology
DX: Z12.5 Encounter for screening for malignant neoplasm of prostate (principal)
CPT/HCPCS: 36415; 84153

== ENCOUNTER 2025-07-06 11:33 | Outpatient (AMB) | payer BC, SELFPAY ==
--- NOTE | 2025-07-06 12:06 | A.OFFVIS_ITS ---
Intake Visit Reasons: 6m/PSA Intake Note: Patient is present for: follow up labs Urology Medication:NONE Blood Thinner:NONE [employer] Cast[employer] Machine Repairer Required: No Accompanied by: Self / Same As Patient Allergies No Known Allergies Allergy (Verified 07/06/25 12:07) HPI Comments Details: Leandro is a pleasant male. He is a patient of . He is seen for following urologic conditions - prostatitis 07/05 PSA 1.9 No episodes of prostatitis since last visit May follow with PCP He understands he may call if he has any issues Prostatitis Previously improved with anti-inflammatories [facility] Medical History (Updated 06/25/24 @ 11:05 by Fly Adair MD) Tubular adenoma History of sigmoidoscopy Abdominal hernia Habitual snoring Elevated cholesterol HTN (hypertension) Rectal bleed H/O babesiosis COVID-19 vaccine series completed History of COVID-19 GERD (gastroesophageal reflux disease) Surgical History History of esophagogastroduodenoscopy (EGD) Social History Are you a primary palliative care physician to a significant other at home: No Do you presently have visiting nurse or other home services: No Alcohol intake: never Patient Tobacco Use Status: Never used Tobacco Review of Systems Const Denies chills and Denies fever(s) Card Reports no additional complaints and Denies syncope Resp Denies cough GI Denies abdominal pain and Denies heartburn Reports as per HPI and Denies change in libido Neuro Denies syncope Psych Denies change in libido Endo Denies change in libido Physical Exam Const General: cooperative, healthy appearing, comfortable and no acute distress Orientation/consciousness: patient oriented x3 HEENT Face and sinus: Yes normal facial exam Mouth: moist mucous membranes Neck Neck: Yes normal visual inspection, Yes full ROM and Yes trachea midline Chest Chest palpation & inspection: normal inspection of the chest Resp Effort & Inspection: normal respiratory effort, able to speak in complete sentences and no respiratory distress GI Inspection: Yes normal to inspection Back/Spine/Pelvis Cervical Spine: normal cervical lordosis Thoracic/Lumbar Spine: thoracic and lumbar spine normal to inspection Skin General skin exam: no rashes or lesions noted Neuro General: patient oriented x3, gait normal, tone normal and moves all extremities Extrem General: Yes normal to inspection and Yes capillary refill normal Assessment & Plan Assessment & Plan (1) Prostatitis: Code(s): N41.9 - Inflammatory disease of prostate, unspecified Category: Medical Plan P.r.n. follow-up Patient Instructions: This note is constructed using voice recognition software. While every effort has been made to ensure accuracy baggage smasher errors may have been included. Imaging studies, laboratory and physical exam results were discussed and reviewed in detail. No major barriers to patient understanding were identified. An opportunity to ask questions regarding the treatment plan was provided. All questions were answered. The patient expressed understanding and agreement with the above treatment plan. The patient is aware they should contact our office by phone for worsening of their current condition or the appearance of new urologic symptoms. Compliance is encouraged with any medications and followup testing that is ordered. It is a privilege to participate in the urologic care of your patient. If you have any questions or concerns regarding treatment for the above conditions, or other urologic issues, please do not hesitate to contact me. The office telephone contact is [phone]. Sincerely, Dr Flavio Piper MD, [facility] - Urology Compassionate Specialist Care for the Genitourinary System Coding Level of Care Code Est Pt Level 4 (93980) Diagnoses Prostatitis N41.9
--- OUTSIDE RECORDS SUMMARY | 2025-07-06 12:31 | XMS_ITS | Clinical Summary ---
Author Organization [employer] Address [address] [place] [address] 7t [place] [address] Care Team Providers Care Alcohol Rubber Name Role Phone Lisette De Jesus MD [...] lobe pulmonary nodule 02/27/2023 Overview (06/26/2024): CXR [facility] on 10/27/20, related to Covid pneumonia. Last CXR ([facility] ) on 05/04/24 was wnl. Assessment & [...] from Dr. Mirza and confirm the Dx. Encounters Date Type Department Care Team Description 06/24/2025 Orders Only GENERIC EXTERNAL DATA DEPARTMENT Provider, Generic External Data from Last 3 Months Immunizations Immunization Administration Dates Next Due Hep B, adult [...] 88 09/11/2024 2:15 PM EDT Temperature 36.3 C (97.4 F) 09/11/2024 2:15 PM EDT Respiratory Rate 20 09/11/2024 2:15 PM EDT [...] Comments CT Colonography 1956 FIT DNA/Cologuard 1956 FOBT 1956 Sigmoidoscopy 1956 Alcohol/Substance Use Screening 1968 Pneumococcal Vaccine: 50+ Years (1 of 1 - PCV) 2006 Zoster Vaccines (1 of 2) 2006 COVID-19 Vaccine (4 - season) 2024 10/25/2022, 02/24/2021, 02/03/2021 FIT 01/23/2025 01/24/2024 Influenza Vaccine (#1) 2025 , 09/12/2021, 10/04/2020, Additional history exists Depression Screening 09/11/2025 09/11/2024, 09/11/20 24 SDOH Screening 09/11/2025 09/11/2024 Tobacco Screening 09/14/2025 09/14/2024 Colonoscopy 06/12/2029 06/12/2024 Colorectal Cancer Screening 06/12/2029 Lipid Panel 07/02/2029 07/02/2024, 04/13, 10/04/2020 DTaP/Tdap/Td Vaccines (2 - Td or Tdap) 10/04/2030 10/04/2020 RSV Patients and Patients Aged 60 years or older (1 - 1-dose 75+ series) 2031 Hepatitis C Screening Completed 06/15/2021, 020 Hepatitis B Vaccines Completed 03/22/2022, 10/16/2021, 09/12/2021 HIB Vaccines Aged Out No longer eligi [...] patient's age to complete this topic Meningococcal B Vaccine Aged Out No l onger eligible based on patient's age to complete [...] Procedure Name Priority Date/Time Associated Diagnosis Comments PSA, TOTAL Routine 06/24/2025 9:15 AM EDT LIPID PANEL WITH REFLEX TO DIRECT LDL Routine 07/02/2024 8:35 AM EDT Dyslipidemia HM COLONOSCOPY Routine 06/12/2024 ZZZ HISTORICAL HEPATITIS C AB W/REFL TO HCV RNA, QN, PCR Routine 06/15/2021 11:53 AM EDT from Last 3 Months or Most Recently Relevant to Health Maintenance Results * PSA,Total (06/24/2025 9:15 AM EDT) Prostate Specific Antigen 1.91 <0.05 - 4.0 ng/mL [facility] Comment:PSA methodology: Abb praveen Alinity i ChemiluminescentMicroparticle Immunoassay (CMIA) 06/24/2025 9:15 AM EDT 06/24/2025 11:20 AM EDT us Generic External Data Provider LAB BLOOD ORDERAB LES Final Result Performing Organization Address [facility] Co de Phone Number [facility] [address] [place] [address] [phone] * (ABNORMAL) Lipid Panel with Reflex to Direct LDL (07/02/2024 8:35 AM EDT) Triglycerides 94 <150 mg/dL [facility] Comment:Desirable Triglyceri de: less than 150 mg/dLBorderline High Triglyceride 150-199 mg/dLHigh Triglyceride: 200-499 mg/dLVery High Triglyceride: greater than or equal to 5OO mg/dL Cholesterol 202(H) <200 mg/dL [facility] Comment:Desirable Cholestero l: less than 200 mg/dLBorderline High Cholesterol: 200-239 mg/dLHigh Cholesterol: greater than 239 mg/dL LDL Cholesterol Calculated 122(H) <100 mg/dL [facility] Comment:Desirable LDL: less than 100 mg/dLNear Optimal/Above Optimal LDL: 110- 129 mg/dLBorderline High LDL: 130-159 mg/dLHigh LDL: 160-189 mg/dLVery High LDL: greater than or equal to 190 mg/dL HDL Cholesterol 62 >40 mg/dL [facility] Comment:Desirable HDL: great er than 40 mg/dL Note: This HDL assay may give artificially low results in patients with liver disease. Blood 07/02/2024 8:35 AM EDT 07/02/2024 12:03 PM EDT us Lisette De Jesus MD LAB BLOOD ORDERABLES Fin al Result Performing Organization Address [facility]/ZIP Co de Phone Number [facility] [address] [place] [address] [phone] * (ABNORMAL) Hm Colonoscopy (06/12/2024) Colonoscopy Abnormal(A ) Normal [facility] Comment:TA us Lisette De Jesus MD HEALTH MAINTENANCE Final Result [facility] [address] [place] [phone] * HEPATITIS C AB W/REFL TO HCV RNA, QN, PCR (06/15/2021 11:53 AM EDT) HEPATITIS C ANTIBODY NON-REACT [facility]ANE NON-REACT [facility] INDEX 0.01 <1.00 [facility] Comment: HCV antibody was non-reactive. There is no laboratory evidence of HCV infection. In most cases, no further action is required. However, if recent HCV exposure is suspected, a test for HCV RNA (test code 25676) is suggested. For additional information please refer to http://education.Exchange Group/faq/SAE21d3 (This link is being provided for informational/ educational purposes only.) 06/15/2021 11:5 3 AM EDT us Dennise Lazcano NP HISTORICAL/NON ORDERABLE LABS F inal Result Performing Organization Address City/[facility]/ZIP Co de Phone Number [facility] [address] from Last 3 Months or Most Recently Relevant to Health Maintenance Insurance [facility] MEDICARE REPLACEMENT PPO Care Teams Alcohol Rubber Relationship Specialty Start Date End Date Lisette De Jesus MD [address] [place] [phone] PCP - General Internal Medicine 03/04/24
--- OUTSIDE RECORDS SUMMARY | 2025-07-06 12:31 | XMS_ITS | Encounter Summary ---
Author Organization [employer] Address [address] [place] [address] 7 [place] [address] Care Team Providers Care Director Of Payroll Name Role Phone Lisette De Jesus MD Primary Care Provider + Encounter Details Date Type Department Care Team ([facility] st Contact Info) Description 06/26/2024 Abstract [facility] [address] [place], [place] [phone] Lisette De Jesus MD [address] [place], [place] [phone] Social History Tobacco Use Types Packs/Day Years [...] -2 Score 0 06/26/2024 9:18 AM EDT Dianna Teague [place] * Over the last 2 [...] (ABNORMAL) Colonoscopy (06/12/2024) Colonoscopy Abnormal(A ) Normal [facility] Comment:TA Lisette De Jesus MD HEALTH MAINTENANCE Final Result [facility] [address] [place] [phone] documented in this encounter Visit Diagnoses Not on filedocumented in this encounter Additional Health Concerns Assessment Noted Time PHQ-9 Depression Total Score: 0 06/26/20 9:18 AM EDT documented as of this encounter Care Teams Director Of Payroll Relationship Specialty Start Date End Date Lisette De Jesus MD [address] [place] [phone] PCP - General Internal Medicine 03/04/24 documented as of this encounter
--- OUTSIDE RECORDS SUMMARY | 2025-07-06 12:31 | XMS_ITS | Patient Health Record ---
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 Name Role Phone Doris Love Primary Care Provider Gavin Salcedo Jr Unavailable Reason For Referral No Information Medications Medication [...] Problem Status W/U Status Risk Notes Problem [id number] Gastroesophageal reflux disease without esophagitis (K21.9) Active confirmed Problem GERD (gastroesophageal reflux disease) (K21.9) Active confirmed Plan Of Treatment Pending Test Test Name Order Date LIVER PROFILE 06/12/2021 Future Test Test Name Order Date UPPER GI ENDOSCOPY 05/17/2021 Insurance Providers Payer Name Payer Address Payer Phone Subscriber Number Group Number Insured Name Patient Relationship to Insured Coverage Start Date Coverage End Date [employer] PREFERRED [address] [place] [address] [phone] [id number] CLARIBEL SIMA Self - patient is the insured [employer] Plan [address] [address] [place], [place] [id number] [phone] [id number] CLARIBEL, SIMA Self - patient is the insured Medical (General) History Medical History History ICD Code covid positive 09/2020 Lyme disease 07/31, sleep apnea Babesiosis Hyperlipidemia Gastroesophageal reflux disease Anxiety Surgical History Surgery Date(Month/Year)
== END 2025-07-06 12:43 | disposition home or self-care (01) ==
LOC: HO.HUSH 11:33
PROVIDERS: PCP Internal Medicine; Visit Provider Urology
DX: N41.9 Inflammatory disease of prostate, unspecified (principal)
CPT/HCPCS: 99214